=== PATIENT | male | born 1945 | race Caucasian/White ===

== ENCOUNTER 2022-01-31 10:01 | Outpatient (CLI) | payer OTHER, SELFPAY ==
[2022-01-31 14:03] LABS: Chloride* 106 mmol/L (96-114)
[2022-01-31 14:04] LABS: Albumin* 4.3 g/dL (3.3-5.0); Sodium* 141 mmol/L (135-149)
[2022-01-31 14:06] LABS: Bilirubin Total* 1.6 mg/dL (0.1-1.5); Carbon Dioxide* 28 mmol/L (20-32); Cholesterol* 129 mg/dL (90-199); Estimated Glomerular Filt Rate 77 ml/min
[2022-01-31 14:07] LABS: Alanine Aminotransferase* 49 U/L (4-50); Alkaline Phosphatase* 110 U/L (40-150); Aspartate Amino Transferase* 41 U/L (12-35); Blood Urea Nitrogen* 20 mg/dL (7-30); Calcium* 9.4 mg/dL (8.4-10.6); Glucose* 98 mg/dL (60-115); Total Protein* 7.2 g/dL (6.0-8.3); Triglycerides* 64 mg/dL (40-149)
[2022-01-31 14:08] LABS: HDL Cholesterol* 61 mg/dL (>=40); LDL Cholesterol Calculated 55 mg/dL (<100)
[2022-01-31 14:36] LABS: PSA Screen* 0.77 ng/mL (0.10-4.00)
== END 2022-01-31 10:02 | disposition home or self-care (01) ==
PROVIDERS: PCP Family Medicine; Visit Provider Family Medicine
DX: Z00.00 Encounter for general adult medical examination without abnormal findings (principal); E78.5 Hyperlipidemia, unspecified; I10 Essential (primary) hypertension; I25.10 Atherosclerotic heart disease of native coronary artery without angina pectoris; N40.0 Benign prostatic hyperplasia without lower urinary tract symptoms
CPT/HCPCS: 80053; 80061; 84153

== ENCOUNTER 2022-06-03 12:57 | Outpatient (CLI) | payer OTHER, SELFPAY ==
--- OUTSIDE RECORDS SUMMARY | 2022-06-03 13:01 | XMS_ITS | Encounter Summary ---
:1945 Author Organization [place] Address [address] [place] [address] Care Team Providers Name Role Phone Luke Cheema MD Primary Care Provider Reason for Visit Rehab Therapy Cardiac Therapy (Routine) - Closed Specialty Diagnoses / Procedures Referred By Contact Refer red To Contact CARDIAC REHAB Diagnoses Medicare//[place], PEGGY RCA 09/01 Requested recs/order [facility] Procedures EVALUATION [address] [place] [address] [address] [place] [address] Phone: Fax: Referral ID Status Reason Start Date Expiration Date Visits V isits Requested Authorized [facility] Closed 09/07/2015 06/25/2016 36 36 ([id number]) Encounter Details Date Type Department Care Team Description 10/23/2015 Hospital Encounter [facility] Cardiac Epi Montemayor MD [address] [place] [address] and Pulmonary 1, Rh Cardiac Rehab Rehabilitation [place] [facility] [id number] [place] [address] [address] [place] [address] Social History Tobacco Use Types Packs/Day Years Used Date Smoking Tobacco: Never Alcohol Use Standard Drinks/Week Comments No 0 (1 standard drink = 0.6 oz pure alcoho l) Sex Assigned at Date Recorded Not on file documented as of this encounter Medications at Time of Discharge Medication Sig Dispensed Refills Start Date End Date ciprofloxacin (CIPRO) 500 Take 1 tablet (500 6 tablet 0 MG tabletIndications: mg) by mouth 2 times 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) Cyanocobalamin (VITAMIN B Take 1,000 mcg by 0 12 PO) mouth daily HYDROcodone-acetaminophen Take 1-2 tablets by 20 tablet 0 1 06/28/2014 (NORCO) 5-325 MG per mouth every 4 hours tabletIndications: as needed for 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
--- OUTSIDE RECORDS SUMMARY | 2022-06-03 13:01 | XMS_ITS | Clinical Summary ---
:1945 Author Organization [facility] [place] [address] Care Team Providers Name Role Phone Shahid Galindo MD Primary Care Provider Allergies No known active allergies Medications Medication Sig Dispensed Refills Start Date End Date Status aspirin chewable 81 mg Take 1 tablet by 0 08/31/2015 Active chewable mouth once daily tabletIndications: with a meal. Acute NV inferior lateral first episode care (HC) nitroglycerin Place 1 tablet 25 tablet 0 08/31/2015 Active (NITROSTAT) 0.4 mg under the tongue sublingual every 5 minutes tabletIndications: if needed for Acute NV inferior Chest Pain lateral first episode (first choice care (HC) for chest pain). atorvastatin (LIPITOR) Take 1 tablet by 90 tablet 4 11/10/2015 Active 40 mg mouth at tabletIndications: bedtime. Acute NV inferior lateral first episode care (HC) FLOVENT HFA 110 0 10/04/2017 Act oscar mcg/actuation inhaler metoprolol succinate Take 0.5 tablets 0 10/02/2018 Active (TOPROL XL) 50 mg by mouth once sustained-release daily. tabletIndications: Acute NV inferior lateral first episode care (HC) losartan (COZAAR) 50 mg Take 1 tablet by 180 tablet 3 11/01/19 19 Active tabletIndications: CAD mouth 2 times in [place] artery, HTN daily. (hypertension) Active Problems Problem Noted Date ASCVD (arteriosclerotic cardiovascular disease) 2015 S/P PEGGY to RCA 08/28/15 08/28/2015 Ischemic cardiomyopathy, LVEF 35-40% 08/28/15 08/28/2015 Acute NV inferior lateral first episode care 6 Overview: Probable RV involvement HTN (hypertension) 08/27/2015 Urolithiasis 08/27/2015 Social History Tobacco Use Types Packs/Day Years Used Date Never Smoker Smokeless Tobacco: Never Used Tobacco Cessation: Counseling Given: Yes Alcohol Use Standard Drinks/Week Comments No 0 (1 standard drink = 0.6 oz pure alcoho l) Sex Assigned at Date Recorded Not on file Obstetrics History Last Filed Vital Signs Vital Sign Reading Time Taken Comments Blood Pressure 154/84 10/02/2018 11:38 AM CDT Pulse 55 10/02/2018 11:38 AM CDT Temperature 36.8 ??C (98.2 ??F) 10/02/2018 11:38 AM CDT Respiratory Rate 20 10/02/2018 11:38 AM CDT Oxygen Saturation 97% 10/02/2018 11:38 AM CDT Inhaled Oxygen - - Concentration Weight 83.3 kg (183 lb 9.6 10/02/2018 11:38 Pt weighed with shoes oz) AM CDT on. Height 172.7 cm (5' 7.99) 09/09/2015 12:32 PM CDT Body Mass Index 27.92 09/09/2015 12:32 PM CDT Plan of Treatment Health Maintenance Due Date Last Done Comments Tdap 01/14/1955 Depression screening for age 12+ 1956 Hepatitis C screening for age 0701/14/1962 18-79 Tetanus booster 1964 Zoster (shingles) series for age 0701/14/1994 50+ (1 of 2) Medicare Wellness for age 65+ 01/14/2009 Pneumococcal series for age 65+ (1 01/14/2009 - PCV) BMI (ht and wt on same day) for 09/08/2016 09/09/2015 age 18+ Influenza for age 65+ 02/24/2022 COVID-19 vaccine series (5 - 03/03/2022 01/06/2022, 021, Booster for Pfizer series) 08/25/2020, Additiona l history exists Results Not on filefrom Last 3 Months Insurance Payer Benefit Plan / Subscriber ID Effective Dates Phone Addre ss Type Group MEDICARE PART MEDICARE PART A [id number] 2008-Presen ATTN: CLAIMS A - HB USE HB ONLY t [address] [place] [address] MEDICARE PART MEDICARE PART B [id number] 2008-Pres ATTN: CLAIMS B - HB USE HB ONLY t [address] [place] [address] MEDICA MR MEDICA [id number] 2020-Presen MEDICA ADVANTAGE MR t [facility] [address] [address] [place] [address] Advance Directives Latest Code Status on File Code Status Date Activated Date Inactivated Comments Full Code 08/27/2015 7:22 PM 08/31/2015 3:13 PM Care Teams Psychological Operations Officer Relationship Specialty Start Date End Date Shahid Galindo MD PCP - General Family Practice 10/02/18 [address] [address]
--- OUTSIDE RECORDS SUMMARY | 2022-06-03 13:01 | XMS_ITS | Encounter Summary ---
:1945 Author Organization [place] Address [address] [place] [address] Care Team Providers Name Role Phone Luke Cheema MD Primary Care Provider Reason for Visit Rehab Therapy Cardiac Therapy (Routine) - Closed Specialty Diagnoses / Procedures Referred By Contact Refer red To Contact CARDIAC REHAB Diagnoses Medicare//[place], PEGGY RCA 09/01 Requested recs/order [facility] Procedures EVALUATION [address] [place] [address] [address] [place] [address] Phone: Fax: Referral ID Status Reason Start Date Expiration Date Visits V isits Requested Authorized [facility] Closed 09/07/2015 06/25/2016 36 36 ([id number]) Encounter Details Date Type Department Care Team Description 11/06/2015 Hospital Encounter [facility] Cardiac Epi Montemayor MD [address] [place] [address] and Pulmonary 1, Rh Cardiac Rehab Rehabilitation [place] [id number] [place] [address] [address] [place] [address] Social History Tobacco Use [...] on filedocumented in this encounter Care Teams Diet Counselor Relationship Specialty Start Date End Date Luke Cheema MD PCP - General Family Practice 11/25/11 07/26/[address] [phone] documented as of this encounter
--- OUTSIDE RECORDS SUMMARY | 2022-06-03 13:01 | XMS_ITS | Encounter Summary ---
:1945 Author Organization [place] Address [address] [place] [address] Care Team Providers Name Role Phone Luke Cheema MD Primary Care Provider Reason for Visit Rehab Therapy Cardiac Therapy (Routine) - Closed Specialty Diagnoses / Procedures Referred By Contact Refer red To Contact CARDIAC REHAB Diagnoses Medicare//[place], PEGGY RCA 09/01 Requested recs/order [facility] Procedures EVALUATION [address] [place] [address] [address] [place] [address] Phone: Fax: Referral ID Status Reason Start Date Expiration Date Visits V isits Requested Authorized [facility] Closed 09/07/2015 06/25/2016 36 36 ([id number]) Encounter Details Date Type Department Care Team Description 10/28/2015 Hospital Encounter [facility] Cardiac Epi Montemayor MD [address] [place] [address] and Pulmonary 1, Rh Cardiac Rehab Rehabilitation [place] [address] [place] [address] [address] [place] [address] Social History Tobacco Use [...] on filedocumented in this encounter Care Teams Shoe Handler Relationship Specialty Start Date End Date Luke Cheema MD PCP - General Family Practice 11/25/11 07/26/[address] [phone] documented as of this encounter
--- OUTSIDE RECORDS SUMMARY | 2022-06-03 13:01 | XMS_ITS | Encounter Summary ---
:1945 Author Organization [place] Address [address] [place] [address] Care Team Providers Name Role Phone Luke Cheema MD Primary Care Provider Reason for Visit Rehab Therapy Cardiac Therapy (Routine) - Closed Specialty Diagnoses / Procedures Referred By Contact Refer red To Contact CARDIAC REHAB Diagnoses Medicare//[place], PEGGY RCA 09/01 Requested recs/order [facility] Procedures EVALUATION [address] [place] [address] [address] [place] [address] Phone: Fax: Referral ID Status Reason Start Date Expiration Date Visits V isits Requested Authorized [facility] Closed 09/07/2015 06/25/2016 36 36 ([id number]) Encounter Details Date Type Department Care Team Description 10/19/2015 Hospital Encounter [facility] Cardiac Epi Montemayor MD [address] [place] [address] and Pulmonary 1, Rh Cardiac Rehab Rehabilitation [place] [address] [place] [address] [address] [place] [address] Social History Tobacco Use [...] on filedocumented in this encounter Care Teams Wool Scourer Relationship Specialty Start Date End Date Luke Cheema MD PCP - General Family Practice 11/25/11 07/26/[address] [phone] documented as of this encounter
--- OUTSIDE RECORDS SUMMARY | 2022-06-03 13:01 | XMS_ITS | Encounter Summary ---
:1945 Author Organization [place] Address [address] [place] [address] Care Team Providers Name Role Phone Luke Cheema MD Primary Care Provider Reason for Visit Rehab Therapy Cardiac Therapy (Routine) - Closed Specialty Diagnoses / Procedures Referred By Contact Refer red To Contact CARDIAC REHAB Diagnoses Medicare//[place], PEGGY RCA 09/01 Requested recs/order [facility] Procedures EVALUATION [address] [place] [address] [address] [place] [address] Phone: Fax: Referral ID Status Reason Start Date Expiration Date Visits V isits Requested Authorized [facility] Closed 09/07/2015 06/25/2016 36 36 ([id number]) Encounter Details Date Type Department Care Team Description 10/12/2015 Hospital Encounter [facility] Cardiac Epi Montemayor MD [address] [place] [address] and Pulmonary 1, Rh Cardiac Rehab Rehabilitation [place] [facility] [address] [place] [address] [address] [place] [address] Social History Tobacco Use [...] on filedocumented in this encounter Care Teams Hollow Tile Partition Erector Relationship Specialty Start Date End Date Luke Cheema MD PCP - General Family Practice 11/25/11 07/26/[address] [phone] documented as of this encounter
--- OUTSIDE RECORDS SUMMARY | 2022-06-03 13:01 | XMS_ITS | Encounter Summary ---
:1945 Author Organization [place] Address [address] [place] [address] Care Team Providers Name Role Phone Luke Cheema MD Primary Care Provider Reason for Visit Rehab Therapy Cardiac Therapy (Routine) - Closed Specialty Diagnoses / Procedures Referred By Contact Refer red To Contact CARDIAC REHAB Diagnoses Medicare//[place], PEGGY RCA 09/01 Requested recs/order [facility] Procedures EVALUATION [address] [place] [address] [address] [place] [address] Phone: Fax: Referral ID Status Reason Start Date Expiration Date Visits V isits Requested Authorized [facility] Closed 09/07/2015 06/25/2016 36 36 ([id number]) Encounter Details Date Type Department Care Team Description 10/16/[address] [facility] Cardiac Epi Montemayor MD [address] [place] [address] and Pulmonary 1, Rh Cardiac Rehab Rehabilitation [facility] [phone] [place] [address] [address] [place] [address] Social History Tobacco Use [...] on filedocumented in this encounter Care Teams Ward Secretary Relationship Specialty Start Date End Date Luke Cheema MD PCP - General Family Practice 11/25/11 07/26/[address] [phone] documented as of this encounter
--- OUTSIDE RECORDS SUMMARY | 2022-06-03 13:01 | XMS_ITS | Encounter Summary ---
:1945 Author Organization [place] Address [address] [place] [address] Care Team Providers Name Role Phone Shahid Galindo Primary Care Provider Encounter Details Date Type Department Care Team Description 04/07/2021 Travel Social History Tobacco Use Types Packs/Day Years Used Date Smoking Tobacco: Never Alcohol Use Standard Drinks/Week Comments No 0 (1 standard drink = 0.6 oz pure alcoho l) Sex Assigned at Date Recorded Not on file COVID-19 Exposure Response Date Recorded In the last month, have you been in contact with No / Unsure 04/07/2021 5:08 AM CDT someone who was confirmed or suspected to have Coronavirus / COVID-19? documented as of this encounter Plan of Treatment Not on filedocumented as of this encounter Visit Diagnoses Not on filedocumented in this encounter Care Teams Global Implementation Manager Relationship Specialty Start Date End Date Shahid Galindo PCP - General Family Medicine 04/07/21 [facility] [address] [place], [place] [address] documented as of this encounter
--- OUTSIDE RECORDS SUMMARY | 2022-06-03 13:01 | XMS_ITS | Encounter Summary ---
:1945 Author Organization [place] Address [address] [place] [address] Care Team Providers Name Role Phone Shahid Galindo Primary Care Provider Encounter Details Date Type Department Care Team Description 04/07/2021 Documentation Only INTERFACED REPORT Unknown, Provider Social History Tobacco Use Types Packs/Day Years [...] on filedocumented in this encounter Care Teams Director Of Restaurant Operations Relationship Specialty Start Date End Date Shahid Galindo PCP - General Family Medicine 04/07/21 [facility] [address] [place] [address] documented as of this encounter
--- OUTSIDE RECORDS SUMMARY | 2022-06-03 13:01 | XMS_ITS | Encounter Summary ---
:1945 Author Organization [place] Address [address] [place] [address] Care Team Providers Name Role Phone Luke Cheema MD Primary Care Provider Reason for Visit Rehab Therapy Cardiac Therapy (Routine) - Closed Specialty Diagnoses / Procedures Referred By Contact Refer red To Contact CARDIAC REHAB Diagnoses Medicare//[place], PEGGY RCA 09/01 Requested recs/order [facility] Procedures EVALUATION [address] [place] [address] [address] [place] [address] Phone: Fax: Referral ID Status Reason Start Date Expiration Date Visits V isits Requested Authorized [facility] Closed 09/07/2015 06/25/2016 36 36 ([id number]) Encounter Details Date Type Department Care Team Description 10/21/2015 Hospital Encounter [facility] Cardiac Epi Montemayor MD [address] [place] [address] and Pulmonary 1, Rh Cardiac Rehab Rehabilitation [place] [phone] [place] [address] [address] [place] [address] Social History Tobacco Use [...] on filedocumented in this encounter Care Teams Road Builder Relationship Specialty Start Date End Date Luke Cheema MD PCP - General Family Practice 11/25/11 07/26/[address] [phone] documented as of this encounter
--- OUTSIDE RECORDS SUMMARY | 2022-06-03 13:01 | XMS_ITS | Encounter Summary ---
:1945 Author Organization [place] Address [address] [place] [address] Care Team Providers Name Role Phone Luke Cheema MD Primary Care Provider Reason for Visit Rehab Therapy Cardiac Therapy (Routine) - Closed Specialty Diagnoses / Procedures Referred By Contact Refer red To Contact CARDIAC REHAB Diagnoses [place]//[place], PEGGY RCA 09/01 Requested recs/order [facility] Procedures EVALUATION [address] [place] [address] [address] [place] [address] Phone: Fax: Referral ID Status Reason Start Date Expiration Date Visits V isits Requested Authorized [facility] Closed 09/07/2015 06/25/2016 36 36 ([id number]) Encounter Details Date Type Department Care Team Description 11/09/2015 Hospital Encounter [facility] Cardiac Epi Montemayor MD [address] [place] [address] and Pulmonary 1, Rh Cardiac Rehab Rehabilitation [place] [address] [place] [address] [address] [place] [address] Social History Tobacco Use [...] on filedocumented in this encounter Care Teams [employer] Rep Relationship Specialty Start Date End Date Luke Cheema MD PCP - General Family Practice 11/25/11 07/26/[address] [phone] documented as of this encounter
--- OUTSIDE RECORDS SUMMARY | 2022-06-03 13:01 | XMS_ITS | Encounter Summary ---
:1945 Author Organization [place] Address [address] [place] [address] Care Team Providers Name Role Phone Luke Cheema MD Primary Care Provider Reason for Visit Rehab Therapy Cardiac Therapy (Routine) - Closed Specialty Diagnoses / Procedures Referred By Contact Refer red To Contact CARDIAC REHAB Diagnoses [place]//[place], PEGGY RCA 09/01 Requested recs/order [facility] Procedures EVALUATION [address] [place] [address] [address] [place] [address] Phone: Fax: Referral ID Status Reason Start Date Expiration Date Visits V isits Requested Authorized [facility] Closed 09/07/2015 06/25/2016 36 36 ([id number]) Encounter Details Date Type Department Care Team Description 11/02/2015 Hospital Encounter [facility] Cardiac Epi Montemayor MD [address] [place] [address] and Pulmonary 1, Rh Cardiac Rehab Rehabilitation [place] [address] [place] [address] [address] [place] [address] Social History Tobacco Use [...] on filedocumented in this encounter Care Teams Clinical Administrative Coordinator Relationship Specialty Start Date End Date Luke Cheema MD PCP - General Family Practice 11/25/11 07/26/[address] [phone] documented as of this encounter
--- OUTSIDE RECORDS SUMMARY | 2022-06-03 13:01 | XMS_ITS | Clinical Summary ---
:1945 Author Organization [place] Address [address] [place] [address] Care Team Providers Name Role Phone Shahid Galindo Primary Care Provider Allergies No known active allergies Medications Medication Sig Dispensed Refills Start Date End Date Status LISINOPRIL PO Take 10 mg by 0 Ac tive mouth daily Cyanocobalamin (VITAMIN Take 1,000 mcg by 0 Active B 12 PO) mouth daily Pyridoxine HCl (VITAMIN Take 25 mg by 0 Active B6 PO) mouth daily NONFORMULARY Take 400 mg by 0 Ac tive mouth daily VITAMIN B-11 HYDROcodone-acetaminoph Take 1-2 tablets 20 tablet 0 5 Active en (NORCO) 5-325 MG per by mouth every 4 tabletIndications: hours as needed 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 severe pain (H) (Moderate to Severe Pain) ciprofloxacin (CIPRO) Take 1 tablet 6 tablet 0 04/28/2015 Active 500 MG (500 mg) by mouth tabletIndications: 2 times daily 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) Social History Tobacco Use Types Packs/Day Years Used Date Smoking Tobacco: Never Alcohol Use Standard Drinks/Week Comments No 0 (1 standard drink = 0.6 oz pure alcoho l) Sex Assigned at Date Recorded Not on file Last Filed Vital Signs Vital Sign Reading Time Taken Comments Blood Pressure 147/87 04/07/2021 7:50 AM CDT Pulse 70 04/07/2021 7:50 AM CDT Temperature 36.4 ??C (97.6 ??F) 04/07/2021 5:16 AM CDT Respiratory Rate 18 04/07/2021 5:16 AM CDT Oxygen Saturation 98% 04/07/2021 7:50 AM CDT Inhaled Oxygen Concentration - - Weight 77.1 kg (170 lb) 04/07/2021 5:16 AM CDT Height 170.2 cm (5' 7) 04/07/2021 5:16 AM CDT Body Mass Index 26.63 04/07/2021 5:16 AM CDT Plan of Treatment Health Maintenance Due Date Last Done Comments ADVANCE CARE PLANNING 1945 ANNUAL REVIEW OF HM ORDERS 1945 COVID-19 Vaccine (#1) 1945 HEPATITIS C SCREENING 01/14/1962 DTAP/TDAP/TD IMMUNIZATION (1 01/14/1969 - Tdap) LIPID 01/14/1979 ZOSTER IMMUNIZATION (1 of 2) 01/14/1994 FALL RISK ASSESSMENT 01/14/2009 MEDICARE ANNUAL WELLNESS 01/14/2009 VISIT Pneumococcal Vaccine: 65+ 01/14/2009 Years (1 - PCV) PHQ-2 (once per calendar 06/26/2021 year) INFLUENZA VACCINE (#1) 2022 COLONOSCOPY Discontinued 12/05/2011, 11/07/2005 COLORECTAL CANCER SCREENING Discontinued CT COLONOGRAPHY Discontinued FIT-DNA (Cologuard) Discontinued FIT Discontinued FLEX SIG Discontinued IPV IMMUNIZATION Aged Out No longer eligi ble based on patient's age to complete this to [facility] MENINGITIS IMMUNIZATION Aged Out No longe r eligible based on patient's age to complete this to [facility] Insurance Payer Benefit Plan / Subscriber ID Effective Dates Phone Addre ss Type Group MEDICA MEDICA ADVANTAGE [id number] 2020-Present [phone] [address] [address] [email or web address] [address] Care Teams Ed Tech Relationship Specialty Start Date End Date Shahid Galindo PCP - General Family Medicine 04/07/21 [facility] [address] [place] [address]
--- OUTSIDE RECORDS SUMMARY | 2022-06-03 13:01 | XMS_ITS | Encounter Summary ---
:1945 Author Organization [facility] Address [address] [place] [address] Care Team Providers Name Role Phone Shahid Galindo Primary Care Provider Reason for Visit Reason Comments Constipation Encounter Details Date Type Department Care Team Description 04/07/2021 Emergency [facility] Romy Oconnor MD Slow transit [facility] Emergency Dep t [facility] constipation [address] [place], [place] [address] [facility] [phone] [facility] [phone] [place] [address] (Wo rk) Social History Tobacco Use Types Packs/Day Years [...] / COVID-19? documented as of this encounter Last Filed Vital Signs Vital Sign Reading [...] Mass Index 26.63 04/07/2021 5:16 AM CDT documented in this encounter Discharge Instructions AttachmentsThe following attachments cannot be sent through Care Everywhere. Constipation, Treating (Cymro)Constipation (Adult) (Cymro)Diet, Eating a High-Fiber (Cymro)documented in this encounter Medications at Time of Discharge [...] PO) daily documented as of this encounter ED Notes Charlotte Newton RN - 04/07/2021 7:53 AM CDT Patient alert and oriented. Respirations even and unlabored. All discharge education given. All questions answered. All medications explained in detail. Patient denies further needs and states that they are ready to leave. Patient ambulated out of the ER with steady gait. Miguel Bright RN - 04/07/2021 5:14 AM CDT Here for concern of constipation for about 24 hours associated with rectal pain. Unable to have a bowel movement since 3pm yesterday. Tried dulcolax but not helping. Last normal bowel movement about 30hours ago. Is currently taking guaifenesin-codeine since night for coughing. ABCs intact. Davide Oconnor MD - 04/07/2021 5:10 AM CDT History Chief Complaint: Constipation The history is provided by the patient. Jaxon Lawler is a 76 year old male with history of kidney stones, melanoma, hypertension, ASCVD,and ischemic cardiomyopathy who presents with constipation. The patient had his last bowel movement about 30 hours ago and has since been constipated and reports yesterday at 1500 he began feeling uncomfortable. Last night he did not eat supper due a lack of appetite and was also unable to sleep from the constipation. The patient has drank prune juice and taken 2 laxative tablets which have worked inthe past, but have not this time. The patient does take fiber medication every morning, and has typically regular bowel movements. Upon arrival he denies any fever or vomiting. The patient did have a routine colonoscopy on 03/29/2021 with normal results. He has also been on codeine due to a bad cough, but stopped taking this yesterday at noon due to the constipation. The patient has additionally not taken his heart medication since yesterday due to the discomfort. He reports no past surgery of the abdomen. Review of Systems Constitutional: Positive for appetite change. Negative for fever. Gastrointestinal: Positive for constipation. Negative for vomiting. Psychiatric/Behavioral: Positive for sleep disturbance. All other systems reviewed and are negative. Allergies: No Known Allergies Medications: ciprofloxacin Cyanocobalamin hydrocodone-acetaminophen lisinopril Pyridoxine Past Medical History: kidney stones Melanoma hypertension ASCVD (arteriosclerotic cardiovascular disease) Ischemic cardiomyopathy Urolithiasis Past Surgical History: Colonoscopy Cystoscopy, retrogrades, combined Cystoscopy, transurethral resection tumor bladder instill chemotherapy, combined Genitourinary surgery Soft tissue surgery Social History: Presents with spouse. PCP: No primary care provider on file. Physical Exam Patient Vitals for the past 24 hrs: BP Temp Temp src Pulse Resp SpO2 Height Weight 04/07/21 0516 (!) 153/96 97.6 ??F (36.4 ??C) Oral 65 18 99 % 1.702 m (5' 7) 77.1 kg (170 lb) Physical Exam General: Patient is alert and cooperative. HENT: Normal nose, oropharynx. Moist oral mucosa. Eyes: EOMI. Normal conjunctiva. Neck: Normal range of motion and appearance. Cardiovascular: Normal rate. Pulmonary/Chest: Effort normal. Abdominal: Soft. No distension or tenderness. Musculoskeletal: Normal range of motion. No edema or tenderness. Neurological: oriented, normal strength, sensation, and coordination. Skin: Warm and dry. No rash or bruising. Psychiatric: Normal mood and affect. Normal behavior and judgement. Emergency Department Course Emergency Department Course: Reviewed: I reviewed nursing notes, vitals, past medical history and Care Everywhere Assessments: 0718 I obtained history and examined the patient as noted above. Disposition: The patient was discharged to home. Impression & Plan Medical Decision Making: Afebrile 76 year old male with acute constipation x 1-2 days. No fever or vomiting. No hx constipation. Tried hydration, prune juice without results. Recent neg repeat screening colonoscopy. No hx abdominal surgeries. Benign exam. Clinically c/w uncomplicated constipation. Discussed management options, including ED enema vs. Aggressive otc miralax in colon prep dosing fashion. He opts for latter, will return if no results, fever, other concerns. Diagnosis: ICD-10-CM 1. Slow transit constipation K59.01 Discharge Medications: New Prescriptions No medications on file Scribe Disclosure: I, Sonja Ward, am serving as a scribe at 7:14 AM on 04/07/2021 to document services personally performed by Davide Oconnor MD based on my observations and the provider's statements to me. Davide Oconnor MD 04/07/212108 documented in this encounter Plan of Treatment Not on filedocumented as of this encounter Visit Diagnoses Diagnosis Slow transit constipation documented in this encounter Care Teams [employer] Relationship Specialty Start Date End Date Shahid Galindo PCP - General Family Medicine 04/07/21 [facility] [address] [place] [address] documented as of this encounter
--- OUTSIDE RECORDS SUMMARY | 2022-06-03 13:01 | XMS_ITS | Encounter Summary ---
:1945 Author Organization [facility] Address [address] [place] [address] Care Team Providers Name Role Phone Luke Cheema MD Primary Care Provider Reason for Visit Rehab Therapy Cardiac Therapy (Routine) - Closed Specialty Diagnoses / Procedures Referred By Contact Refer red To Contact CARDIAC REHAB Diagnoses [place]//[place] PEGGY RCA 09/01 Requested recs/order [facility] Procedures EVALUATION [address] [place] [address] [address] [place] [address] Phone: Fax: Referral ID Status Reason Start Date Expiration Date Visits V isits Requested Authorized [facility] Closed 09/07/2015 06/25/2016 36 36 ([id number]) Encounter Details Date Type Department Care Team Description 10/09/[address] [facility] Cardiac Epi Montemayor MD [address] [place] [address] and Pulmonary 1, Rh Cardiac Rehab Rehabilitation [facility] [id number] [place] [address] [address] [place] [address] Social History Tobacco Use Types Packs/Day Years Used Date Smoking Tobacco: Never Alcohol Use Standard Drinks/Week Comments No 0 (1 standard drink = 0.6 oz pure alcoho l) Sex Assigned at Date Recorded Not on file documented as of this encounter Last Filed Vital Signs Vital Sign Reading Time Taken Comments Blood Pressure - - Pulse - - Temperature - - Respiratory Rate - - Oxygen Saturation - - Inhaled Oxygen Concentration - - Weight 75.5 kg (166 lb 6.4 oz) 10/09/2015 2:00 PM CDT Height 172.7 cm (5' 7.99) 10/09/2015 2:00 PM CDT Body Mass Index 25.31 10/09/2015 2:00 PM CDT documented in this encounter Medications at Time of [...] PO) daily documented as of this encounter Miscellaneous Notes Addendum Note - Nai Rausch OT - 10/12/2015 8:08 AM CDTEncounter addended by: Nai Rausch OT on: 10/12/2015 8:08 AM
Documentation filed: Charges VN, Episodes documented in this encounter Plan of Treatment Not on filedocumented as of this encounter Visit Diagnoses Not on filedocumented in this encounter Care Teams Nursing Home Physician Relationship Specialty Start Date End Date Luke Cheema MD PCP - General Family Practice 11/25/11 07/26/[address] [phone] documented as of this encounter
--- OUTSIDE RECORDS SUMMARY | 2022-06-03 13:01 | XMS_ITS | Encounter Summary ---
:1945 Author Organization [facility] Address [address] [place] [address] Care Team Providers Name Role Phone Luke Cheema MD Primary Care Provider Reason for Visit Rehab Therapy Cardiac Therapy (Routine) - Closed Specialty Diagnoses / Procedures Referred By Contact Refer red To Contact CARDIAC REHAB Diagnoses Medicare//[place], PEGGY RCA 09/01 Requested recs/order [facility] Procedures EVALUATION [address] [place] [address] [address] [place] [address] Phone: Fax: Referral ID Status Reason Start Date Expiration Date Visits V isits Requested Authorized [facility] Closed 09/07/2015 06/25/2016 36 36 ([id number]) Encounter Details Date Type Department Care Team Description 11/10/2015 Hospital Encounter [facility] Cardiac Epi Montemayor MD [address] [place] [address] and Pulmonary 1, Rh Cardiac Rehab Rehabilitation [facility] [id number] [place] [address] [address] [place] [address] Social History Tobacco Use [...] - Inhaled Oxygen Concentration - - Weight 75 kg (165 lb 6.4 oz) 11/10/2015 2:00 PM CDT Height 172.7 cm (5' 7.99) 11/10/2015 2:00 PM CDT Body Mass Index 25.15 11/10/2015 2:00 PM CDT documented in this encounter [...] PO) daily documented as of this encounter Progress Notes Samir Zelaya MD - 11/10/2015 3:06 PM CDT OUTPATIENT CARDIAC REHAB DISCHARGE SUMMARY Name: Jaxon Lawler Date of : 1945 Date of Treatment: 08/27/15 Age: [age] year old Gender: male Treatment Diagnosis: Myocardial Infarction Secondary Treatment Diagnosis: Stent Hospital Location: [facility] Discharge Date: 08/31/15 Outpatient CR Start Date: 09/08/15 Primary Physician: Dr. Tracey Brennan Surgeon: Engraver Jewelry: Dr. Epi Fontaine Ejection Fraction: 55-60% THR (85% of age predicted max HR): 126.65 Risk Stratification: Low Assessment Assessment: 09/22/15. PT is progressing per POC. Hematoma is healing nicely. Appetite is WNL. Sleep is disrupted. He reports awaking frequently during the night to use bathroom. He aslo reports having night sweats. PT will see PCP mid September and have an echo late September. PT will be absent from rehab for about 1 week as he will be out of town. Continue with skilled therapy for increased exercise capacity, education and behavior change counseling. 10/09/15 PT present for 1:1 consult today. Discussed PT's progression and current workload. PT reports that he is more aware of the foods in his diet. See nutrition section. PT reports that he is still having trouble getting up multiple times throughout the night and using the restroom. Suggested he try to drink less water closer to bedtime. PT is not having night sweats anymore. He has started to exercise at home on his TM for 10-15 minutes 2 days/week. Discussed progress in both goals. See goals 1 and 2. PT is interested in learning more ways to incorporated aerobic exercise into his daily activities. He had a resting echo yesterday and is waiting for the results. Pt wondered if what he could expect. PT was under the impression that his EF could not increase. Therapist explained that it could if the muscle in the heart was able to heal some of the damaged area. PT will report his results to therapist when he receives them. PT continues to benefit fromOPCR for increased exercise capacity, education and behavior change counseling. Pt made significant gains in exercise tolerance. Initially patient tolerated 30 minutes at 2.6 METs, now tolerating 40 minutes at 6.0 METs. Patient also increased 6- minute walk test by 43%. The PT was given instructions onfrequency, intensity, and duration for continued exercise as well as muscle conditioning and stretchi ng exercises. Your PT plans to continue with an aerobic exercise program with use of TM and/or elliptical at work, is considering purchasing a TM or possibly joining a gym. He is pleased with his progress and has felt that the cardiac rehab program has been beneficial in aiding him to start an exercise program as well as provide education on risk factor management. All questions answered and PT discharged at this time. 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 Target Date 10/21/15 Date Met 11/10/15 Progress Towards Goal 09/19/15. This week Pt returned to work. He is limiting himself to 2-4 hours per day. PT has also self limited his lifting and ladder climbing. His employer is very accommodating.Py plans to gradually increase to 5 days and 5 hours per day. 10/09/15 PT is working 2.5-3 hours/day no more than 3 days/week. Next week PT plans to increase to 5 days/week. Goal PT desires to get his heart strong enough to be able to work at an intensity high enough to maintain his [address] through attending cardiac rehab 3 days/week building a safe, aerobic exercise program. Target Date 10/21/15 Date Met 11/10/15 Progress Towards Goal 09/22/15. Pt has resumed most ADLs without issue. 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 Therapy will continue to provide instruction for gradual progress and safe return to this. 10/09/15 PT is being very cautious to not over do his work at home. He reports that he did mow the lawn on the riding mower last weekend. PT feels he will be able to base his workload on the progression of his weights to help him gauge the lifting he can handle. PT is making good progress in his work at rehab. Goal Target Date Date Met Progress Towards Goal Goal Target Date Date Met Progress Towards Goal Referrals Recommended Referrals recommended: Comments: Pain Assessment Patient Currently in Pain: No Pain Location: Pain Rating: Pain Description: Pain Description Comment: Additional Pain Locations?: Pain Location 2: Pain Rating 2: Pain Location 3: Pain Rating 3: Pain Comments: RISK FACTORS Hypertension Hypertension: Yes Currently taking antihypertensives? Yes Target outcome goal: BP< 140/90 or <130/80 if DM or CKD Outcome Achieved Hypertension comments: 09/08/15 PTs BP is WNL.10/09/15 No change. Tobacco Tobacco: Never Quit date or planned quit date: Tobacco habit: Tobacco use per day: Interventions planned: Interventions completed: Stages of change: Target outcome goal: Complete Smoking Cessation: Outcome Achieved (NA) Tobacco comments: Stress / Psychosocial Discharge Psychosocial assessment: Re-assessment Patient admits to stress: Denies Current level of stress: Denies Coping skills: NA Patient Health Questionnaire-9 (PHQ-9) for Depression: 5-9 Minimal symptoms 10-14 Minor depression 15-19 Major depression, moderately severe > 20 Major depression, severe Completed PHQ-9 Score: 3 [facility] Function and Health Status Survey: A score of 4-5 indicates deficit for each functional health domain Completed Physical Fitness: 2 Feelings: 1 Daily Activities: 1 Social Activities: 1 Pain: 2 Change in Health: 1 Overall Health: 2 Social Support: 1 Quality of Life: 1 Stages of change: Maintenance Psychosocial interventions planned: Patient to verbalize understanding of negative impact of stress to personal health Psychsocial interventions completed: Target outcome goal: Assessment for depression using PhQ-9 and [facility] CO[facility] questionnaires. Maximize coping skills and develop positive support system: Outcome Achieved Comments: 09/08/15 PT reports that stress is not an issue for him at this time. PT reports that his is easy going and doesn't let things bother him. 09/22/15. Did not address. 10/09/15 PT denies stress asan issue for him at this time. Nutrition Discharge Dietary assessment: Re-assessment Rate Your Plate - Heart Survey: Scores range from 24 to 72. The higher the score the healthier the eating choices. 60 Overweight / Obesity: Yes Age: 70 Weight: 75.025 kg (165 lb 6.4 oz) Height: 172.7 cm (5' 7.99) BMI (Calculated): 25.21 Goal weight: Prescribed diet: Low Fat, Low Sodium, Low Cholesterol Follows prescribed diet: > 80% Stages of change to prescribed diet: Action Nutrition interventions planned: Attend Diet Classes, Instruct on Label Reading Nutrition interventions completed: Attended diet class (es) Target outcome goal: BMI < 25: Outcome Achieved Comments: 09/08/15 PT reports that they eat a diet following weight watchers guidelines. He avoids nuts, popcorn and seeds due to diverticulitis. PT was prescribed a heart healthy diet and they are working on making these changes. 09/22/15. Pt has decreased his portions at meals. He is having small snacks throughout the day that are typically fruit and/or yogurt. 10/09/15 PT has attended one of the nutrition classes. He reports that he is much more aware of the foods he is eating. He pays attention to the labels now watching for trans and saturated fats as well as sodium. Pt has cut out a lot of salt from his diet. He is eating more fruits and vegetables now and less red meat. Cholesterol Cholesterol: Labs Not Available (PT looking to gain access to CHOL values.) Date: Total Cholesterol: HDL: LDL: Triglycerides: Target outcome goal: Total cholesterol <150, HDL >40 M >50 F, LDL < 70, Trig < 150: Comments: Diabetes Management Diabetes Management: NA Hb A1C: Pre-Exercise Blood Sugar: Target outcome goal: Hb A1C < 7: Outcome Achieved (NA) Comments: Inactivity / Aerobic Exercise Discharge Status Activity assessment: Re-assessment Inactivity: Meets Physical Activity Goal Physical Activity Days per Week: 7 Aerobic Exercise Days per Week: 5 Aerobic Exercise Minutes per Day: 30-40 (10-15 minutes at home) Stages of Change (Physical Activity): Maintenance Stages of Change (Aerobic Activity): Action Target Outcome Goal: Aerobic Activity 30 minutes, 5 days per week = 150 minutes per week: Outcome Achieved Comments: 09/08/15 PT has access to a TM and elliptical/bike at home. 10/09/15 PT reports using his TMat home 2 days/week for 10-15 minutes. He is interested in finding more aerobic exercises he can incorporate into his daily activities. He is also thinking about joining [employer]. PT told about the WEL program. INDIVIDUALIZED TREATMENT PLAN Monitored sessions scheduled: 18 Monitored sessions attended: 24 Exercise Reassessment Discharge 6 Minute Walk Distance: 2069 ft 6 Minute Walk Predicted (Male): 1671.48 6 Minute Walk Predicted (Female): 1472.23 Met Level Achieved: 6.0 Resting HR: 54 bpm Exercise HR: 121 bpm Post Exercise HR: 76 bpm Resting BP: 110/64 mmHg Exercise BP: 134/64 mmHg Post Exercise BP: 118/66 mmHg Pre SpO2: While Exercising SpO2: Post SpO2: Pre BG (if applicable): Post BG (if applicable): RPE: 5 ECG Rhythm: Sinus bradycardia, Sinus rhythm Ectopy: PVC's Symptoms at home: Denies symptoms Symptoms in rehab: Denies symptoms Limitations: PT had huge hematoma following PCI. still is tender. 3*2916. Reports hematoma is much better. Very little to no discomfort. No exercise modality limits. Exercise Prescription Type: Aerobic exercise, Resistance training, Flexibility training Mode: Treadmill, Airdyne, NuStep, Recumbent bike, Elliptical, Weights Frequency: 3 days week Duration/Time: 15-30 min Age: 70 THR (85% of age predicted max HR): 126.65 RPE recommended: Other (see comments) (OMNI 4-6) Progression: Progress PTs duration first once PT is able to complete 30 minutes of continuous aerobic exercise. Then increase intensity 1/4-1/2 MET per PT rating on OMNI scale 4-6 and CV response. Progress on TM (no bikes) until groin hematoma heals completely. 09/22/15. Ok to begin using other exercise modalities. Angina with exercise: No Resistance Training: Yes Comments: 10/09/15 PT Will increase weights next week to 8# and continue to progress his wts as he adjust. Current Home Exercise Type of Exercise: Treadmill Frequency (days per week): 2 Duration (minutes per session): 10-15 Recommended Home Exercise Prescription Type of Exercise: Walking, Treadmill Frequency (days per week): 5 to 6 Duration (minutes per session): 30-45 min RPE recommended: Other (see comments) (OMNI 4-6) Recommended THR: Less than 126.65 BPM Comments/Exercise plan: Patient Education Education Attended: Exercise Principles, Nutrition, Anatomy and Physiology of the Heart, Medication Overview, Stress Management Physician cosignature/electronic signature indicates agreement with the ITP document and approval ofdischarge. documented in this encounter Plan of Treatment Not on filedocumented as of this encounter Visit Diagnoses Not on filedocumented in this encounter Care Teams Art Class Model Relationship Specialty Start Date End Date Luke Cheema MD PCP - General Family Practice 11/25/11 07/26/[address] [address] documented as of this encounter
--- OUTSIDE RECORDS SUMMARY | 2022-06-03 13:01 | XMS_ITS | Encounter Summary ---
:1945 Author Organization [place] Address [address] [place] [address] Care Team Providers Name Role Phone Luke Cheema MD Primary Care Provider Reason for Visit Rehab Therapy Cardiac Therapy (Routine) - Closed Specialty Diagnoses / Procedures Referred By Contact Refer red To Contact CARDIAC REHAB Diagnoses Medicare//HI, PEGGY RCA 09/01 Requested recs/order [facility] Procedures EVALUATION [address] [place] [address] [address] [place] [address] Phone: Fax: Referral ID Status Reason Start Date Expiration Date Visits V isits Requested Authorized [facility] Closed 09/07/2015 06/25/2016 36 36 ([id number]) Encounter Details Date Type Department Care Team Description 10/14/2015 Hospital Encounter [facility] Cardiac Epi Montemayor MD [address] [place] [address] and Pulmonary 1, Rh Cardiac Rehab Rehabilitation [place] [facility] [id number] [place] [address] [address] [place] [address] Social History Tobacco Use [...] encounter Progress Notes Samir Zelaya MD - 10/14/2015 2:45 PM CDT OUTPATIENT CARDIAC REHAB INDIVIDUALIZED TREATMENT PLAN Progress Update Certified through this date: 11/25/15 Name: Jaxon Lawler Date of : 1945 Date of Treatment: 08/27/15 Age: [age] year old Gender: male Treatment Diagnosis: Myocardial Infarction Secondary Treatment Diagnosis: Stent Hospital Location: [facility] Discharge Date: 08/31/15 Outpatient CR Start Date: 09/08/15 Primary Physician: Dr. Tracey Brennan Surgeon: [place] Hand: Dr. Epi Fontaine Ejection Fraction: 35-40% THR (85% of age predicted max HR): 126.65 Risk Stratification: High Assessment Assessment: 09/22/15. PT is progressing per POC. Hematoma is healing nicely. Appetite is WNL. Sleep is disrupted. He reports awaking frequently during the night to use bathroom. He also reports having night sweats. PT will see [...] exercise capacity, education and behavior change counseling. 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 Target Date 10/21/15 Date Met Progress Towards Goal 09/19/15. This week Pt [...] exercise program. Target Date 10/21/15 Date Met Progress Towards Goal 09/22/15. Pt has resumed [...] Achieved (NA) Tobacco comments: Stress / Psychosocial Reassessment Psycho-social Assessment: Re-assessment Patient admits to stress: Denies Current level of stress: Denies Coping skills: NA Patient Health Questionnaire-9 (PHQ-9) for Depression: 5-9 Minimal symptoms 10-14 Minor depression 15-19 Major depression, moderately severe > 20 Major depression, severe Completed PHQ-9 Score: 7 [facility] Function and Health Status Survey: A score of 4-5 indicates deficit for each functional health domain Completed Physical Fitness: 3 Feelings: 1 Daily Activities: 3 Social Activities: 1 Pain: 2 Change in Health: 4 Overall Health: 2 Social Support: 1 Quality of Life: 3 Stages of change: Maintenance Psychosocial Interventions planned: Patient to verbalize understanding of negative impact of stress to personal health Psychosocial Interventions completed: Target outcome goal: Assessment for depression using PhQ-9 and [facility] questionnaires. Maximize coping skills and develop positive support system. Outcome Achieved Comments: 09/08/15 PT reports that stress is not an issue for him at this time. PT reports that his is easy going and doesn't let things bother him. 09/22/15. Did not address. 10/09/15 PT denies stress asan issue for him at this time. Nutrition Reassessment Dietary assessment: Re-assessment Rate Your Plate - Heart Survey: Scores range from 24 to 72. The higher the score the healthier the eating choices. 50 Overweight / Obesity: Yes Age: 70 Weight: Height: BMI (Calculated): Goal weight: Prescribed diet: Low Fat, Low Sodium, Low Cholesterol Follows prescribed diet: 60 - 79% Stages of change to prescribed diet: Action Nutrition interventions planned: Attend Diet Classes, Instruct on Label Reading Nutrition interventions completed: Target outcome goal: BMI < 25: Outcome [...] Achieved (NA) Comments: Inactivity / Aerobic Exercise Reassessment Activity Assessment: Re-assessment Inactivity: Meets Physical Activity Goal Physical Activity Days per Week: 7 Aerobic Exercise Days per Week: 5 Aerobic Exercise Minutes per Day: 30-40 (10-15 minutes at home) Stages of Change (Physical Activity): Maintenance Stages of Change (Aerobic Activity): Action Target Outcome Goal: Aerobic Activity 30 minutes, 5 days per week = 150 minutes per week: Outcome Not Achieved Comments: 09/08/15 PT has access to a TM and elliptical/bike at home. 10/09/15 PT reports using his TMat home 2 days/week for 10-15 minutes. He is interested in finding more aerobic exercises he can incorporate into his daily activities. INDIVIDUALIZED TREATMENT PLAN Monitored sessions scheduled: 18 Monitored sessions Attended: 11 Exercise Reassessment Met Level Achieved: 4.6 Resting HR: 54 bpm Exercise HR: 104 bpm Post Exercise HR: 51 bpm Resting BP: 98/68 mmHg Exercise BP: 138/80 mmHg Post Exercise BP: 112/58 mmHg Pre SpO2: While Exercising SpO2: Post SpO2: Pre BG (if applicable): Post BG (if applicable): RPE: 5 ECG Rhythm: Sinus bradycardia, Sinus rhythm Ectopy: PVCs Symptoms at home: Denies symptoms Symptoms in rehab: Denies symptoms Limitations: PT had huge hematoma following PCI. still is tender. 3*2916. Reports hematoma is much better. Very little to no discomfort. No exercise modality limits. Exercise Prescription Type: Aerobic exercise, Resistance training, Flexibility training Mode: Treadmill, Airdyne, Nustep, Recumbent bike, Elliptical, Weights Frequency: 3 days [...] Exercise: Walking, Treadmill Frequency (days per week): 2-3 Duration (minutes per session): 15-30 min RPE recommended: Other (see comments) (OMNI 4-6) Recommended THR: Less than 126.65 BPM Comments/Exercise plan: Patient Education Education Recommended: Anatomy and Physiology of the Heart, Medication Overview, Nutrition, Blood Pressure, Risk Factors, Exercise Principles Education Attended: Exercise Principles, Nutrition Physician cosignature/electronic signature indicates approval of this ITP document. I have established, reviewed and made necessary changes to the individualized treatment plan and exercise prescription for this patient. documented in this encounter Plan of Treatment Not on filedocumented as of this encounter Visit Diagnoses Not on filedocumented in this encounter Care Teams Investment Consultant Relationship Specialty Start Date End Date Luke Cheema MD PCP - General Family Practice 11/25/11 07/26/[address] [phone] documented as of this encounter
--- OUTSIDE RECORDS SUMMARY | 2022-06-03 13:01 | XMS_ITS | Encounter Summary ---
:1945 Author Organization [place] Address [address] [place] [address] Care Team Providers Name Role Phone Luke Cheema MD Primary Care Provider Reason for Visit Rehab Therapy Cardiac Therapy (Routine) - Closed Specialty Diagnoses / Procedures Referred By Contact Refer red To Contact CARDIAC REHAB Diagnoses Medicare//HI, PEGGY RCA 09/01 Requested recs/order [facility] Procedures EVALUATION [address] [place] [address] [address] [place] [address] Phone: Fax: Referral ID Status Reason Start Date Expiration Date Visits V isits Requested Authorized [facility] -[facility] Closed 09/07/2015 06/25/2016 36 36 ([id number]) Encounter Details Date Type Department Care Team Description 11/04/[address] [facility] Cardiac Epi Montemayor MD [address] [place] [address] and Pulmonary 1, Rh Cardiac Rehab Rehabilitation [place] [facility] [phone] [place] [address] [address] [place] [address] Social History Tobacco Use [...] on filedocumented in this encounter Care Teams Continuous Pillowcase Cutter Relationship Specialty Start Date End Date Luke Cheema MD PCP - General Family Practice 11/25/11 07/26/[address] [phone] documented as of this encounter
--- OUTSIDE RECORDS SUMMARY | 2022-06-03 13:01 | XMS_ITS | Encounter Summary ---
:1945 Author Organization [place] Address [address] [place] [address] Care Team Providers Name Role Phone Luke Cheema MD Primary Care Provider Reason for Visit Rehab Therapy Cardiac Therapy (Routine) - Closed Specialty Diagnoses / Procedures Referred By Contact Refer red To Contact CARDIAC REHAB Diagnoses Medicare//[place], PEGGY RCA 09/01 Requested recs/order [facility] Procedures EVALUATION [address] [place] [address] [place] [address] Phone: Fax: Referral ID Status Reason Start Date Expiration Date Visits V isits Requested Authorized [facility] -[facility] Closed 09/07/2015 06/25/2016 36 36 ([id number]) Encounter Details Date Type Department Care Team Description 10/26/2015 Hospital Encounter [facility] Cardiac Epi Montemayor MD [address] [place] [address] and Pulmonary 1, Rh Cardiac Rehab [facility] [place] [facility] [phone] [place] [address] [address] [place] [address] Social History Tobacco Use [...] on filedocumented in this encounter Care Teams Liquor Grinder Mill Operator Relationship Specialty Start Date End Date Luke Cheema MD PCP - General Family Practice 11/25/11 07/26/[address] [phone] documented as of this encounter
--- OUTSIDE RECORDS SUMMARY | 2022-06-03 13:02 | XMS_ITS | Encounter Summary ---
:1945 Author Organization [place] Address [address] [place] [address] Care Team Providers Name Role Phone Luke Cheema MD Primary Care Provider Reason for Visit Rehab Therapy Cardiac Therapy (Routine) - Closed Specialty Diagnoses / Procedures Referred By Contact Refer red To Contact CARDIAC REHAB Diagnoses Medicare//[place], PEGGY RCA 09/01 Requested recs/order [facility] Procedures EVALUATION [address] [place] [address] [place] [address] Phone: Fax: Referral ID Status Reason Start Date Expiration Date Visits V isits Requested Authorized [facility] -[facility] Closed 09/07/2015 06/25/2016 36 36 ([id number]) Encounter Details Date Type Department Care Team Description 09/14/2015 Hospital Encounter [facility] Cardiac Epi Montemayor MD [address] [place] [address] and Pulmonary 1, Rh Cardiac Rehab Rehabilitation [place] [facility] [id number] [place] [address] [address] [place] [address] Social History Tobacco Use [...] on filedocumented in this encounter Care Teams Retention Specialist Relationship Specialty Start Date End Date Luke Cheema MD PCP - General Family Practice 11/25/11 07/26/[address] [phone] documented as of this encounter
--- OUTSIDE RECORDS SUMMARY | 2022-06-03 13:02 | XMS_ITS | Encounter Summary ---
:1945 Author Organization [place] Address [address] [place] [address] Care Team Providers Name Role Phone Luke Cheema MD Primary Care Provider Reason for Visit Rehab Therapy Cardiac Therapy (Routine) - Closed Specialty Diagnoses / Procedures Referred By Contact Refer red To Contact CARDIAC REHAB Diagnoses Medicare//[place], PEGGY RCA 09/01 Requested recs/order [facility] Procedures EVALUATION [address] [place] [address] [address] [place] [address] Phone: Fax: Referral ID Status Reason Start Date Expiration Date Visits V isits Requested Authorized [facility] -[facility] Closed 09/07/2015 06/25/2016 36 36 ([id number]) Encounter Details Date Type Department Care Team Description 09/16/2015 Hospital Encounter [facility] Cardiac Epi Montemayor MD [address] [place] [address] and Pulmonary 1, Rh Cardiac Rehab Rehabilitation [place] [facility] [address] [place] [address] [address] [place] [address] Social History Tobacco Use [...] on filedocumented in this encounter Care Teams Cloth Shearer Relationship Specialty Start Date End Date Luke Cheema MD PCP - General Family Practice 11/25/11 07/26/[address] [phone] documented as of this encounter
--- OUTSIDE RECORDS SUMMARY | 2022-06-03 13:02 | XMS_ITS | Encounter Summary ---
:1945 Author Organization [place] Address [address] [place], [place] [address]. [place] [address] Care Team Providers Name Role Phone Luke Cheema MD Primary Care Provider Reason for Visit Auth/Cert Specialty Diagnoses / Procedures Referred By Contact Refer red To Contact Surgery Diagnoses BLADDER TUMOR, GROSS HEMATURIA Sh Periop Services Procedures COMBINED CYSTOSCOPY, TRANSURETHRAL RESECTION (TUR) TUMOR BLADDER INSTILL CHEMOTHERAPY [address] [place] [address] Phone: Referral ID Status Reason Start Date Expiration Date Visits Requ ested Visits Authorized [id number] 1 1 Encounter Details Date Type Department Care Team Description 04/28/2015 Anesthesia Event [facility] Ser nola Guerra MD [address] [facility]OLOGISTS [place] [address] [phone] [place] [id number] (Wo rk) Anesthesia Record Procedure Summary Procedure Name Responsible Anesthesia Start Anesthesia Stop Anesthesiologist Time Time CYSTOSCOPY, BILATERAL Sea Rivas MD 04/28/15 1114 1 06/28/14 1210 RETROGRADES, TRANSURETHRAL RESECTION OF BLADDER TUMOR WITH INTERVESICAL INSTILLATION MITOMYCIN C (Urethra) Events Date Time Event Comment 04/28/2015 1046 1114 An Start 1114 An Start Data 1116 An Induction 1116 MD Present 1120 An LMA 1120 AN START SEVO 1132 AN INCISION 1156 AN END SEVO 1204 an stop data 1210 An Stop Electronically s igned by Torie Nuñez on April 28, 2015 12:10 PM Name Total ePHEDrine 5 mg/mL 10 mg fentanyl 50mcg/mL 100 mcg lidocaine 2% 100 mg midazolam 1mg/mL 1 mg ondansetron 2mg/mL 4 mg propofol 10mg/mL 200 mg gentamicin (GARAMYCIN) intermittent infusion 80 mg 80 mg lactated ringers infusion 800 mL Agents Name O2 N2O Air Exp Sevoflurane Ins Sevoflurane Blood No blood administrations on file. Lines, Drains, and Airways Type Details Placement Removal Peripheral IV 04/28/15; 1031; 16 G, 04/28/15 1031 by 04/28/15 1453 by 18 G; Left; Hand; [place] Lamb Loff, Steven, RN Chlorhexidine; RN Injectable; Tolerated well Urethral Catheter 04/28/15; 1158; No; 04/28/15 1158 by 04/07/21 0854 by Other (Comment) (Chemo Yenny Srivastava, RENAE Inp atient, Nurse instillation); 18 fr documented in this encounter Social History Tobacco Use Types Packs/Day Years Used Date Smoking Tobacco: Never Alcohol Use Standard Drinks/Week Comments No 0 (1 standard drink = 0.6 oz pure alcoho l) Sex Assigned at Date Recorded Not on file documented as of this encounter OR Notes Anesthesia Postprocedure Evaluation - Sea Rivas MD - 04/28/2015 1:04 PM CST Patient: Jaxon Olmstead Tonsager COMBINED CYSTOSCOPY, TRANSURETHRAL RESECTION (TUR) TUMOR BLADDER INSTILL CHEMOTHERAPY (N/A Urethra) COMBINED CYSTOSCOPY, RETROGRADES (Urethra) Additional InformationProcedure(s): CYSTOSCOPY, BILATERAL RETROGRADES, TRANSURETHRAL RESECTION OF BLADDER TUMOR WITH INTERVESICAL INSTILLATION MITOMYCIN C Diagnosis:BLADDER TUMOR, GROSS HEMATURIA Diagnosis Additional Information: No value filed. Anesthesia Type: General, LMA Note: Anesthesia Post Evaluation Patient location during evaluation: PACU Patient participation: Able to fully participate in evaluation Level of consciousness: sleepy but conscious and responsive to verbal stimuli Pain management: adequate Airway patency: patent Anesthetic complications: no Cardiovascular status: acceptable and hemodynamically stable Respiratory status: acceptable and unassisted Hydration status: acceptable PONV: none Last vitals: Filed Vitals: 04/28/15 1230 04/28/15 1245 04/28/15 1300 BP: 110/70 126/82 122/75 Pulse: Temp: 36.6 ??C (97.8 ??F) 36.6 ??C (97.8 ??F) Resp: 13 SpO2: 100% 98% 99% Electronically Signed By: Sea Rivas MD April 28, 2015 1:04 PM E HAND Anesthesia Preprocedure Evaluation - Sea Rivas MD - 04/28/2015 10:44 AM CST Procedure: Procedure(s): COMBINED CYSTOSCOPY, TRANSURETHRAL RESECTION (TUR) TUMOR BLADDER INSTILL CHEMOTHERAPY COMBINED CYSTOSCOPY, RETROGRADES Preop diagnosis: BLADDER TUMOR, GROSS HEMATURIA No Known Allergies Past Medical History Diagnosis Date ??? Hypertension ??? History of melanoma ??? History of kidney stones ??? Hematuria Past Surgical History Procedure Laterality Date ??? Colonoscopy ??? Genitourinary surgery kidney stones with laser ??? Soft tissue surgery REMOVAL MELANOMA - BACK Prior to Admission medications Medication Sig Start Date End Date Taking? Authorizing Provider Cyanocobalamin (VITAMIN B 12 PO) Take 1,000 mcg by mouth daily Yes Reported, Patient Pyridoxine HCl (VITAMIN B6 PO) Take 25 mg by mouth daily Yes Reported, Patient NONFORMULARY Take 400 mg by mouth daily VITAMIN B-11 Yes Reported, Patient ASPIRIN PO Take 81 mg by mouth daily Yes Reported, Patient LISINOPRIL PO Take 10 mg by mouth daily Yes Reported, Patient Current Facility-Administered Medications Ordered in [facility] Medication Dose Route Frequency Last Rate Last Dose ??? gentamicin (GARAMYCIN) intermittent infusion 80 mg 80 mg Intravenous Pre-Op/Pre-procedure x 1 dose 80 mg at 04/28/15 1033 ??? lactated ringers infusion Intravenous Continuous 25 mL/hr at 04/28/15 1033 No current [facility]-ordered outpatient prescriptions on file. Wt Readings from Last 1 Encounters: 12/05/11 76.204 kg (168 lb) Temp Readings from Last 1 Encounters: No data found for Temp BP Readings from Last 6 Encounters: 12/05/11 122/84 Pulse Readings from Last 4 Encounters: No data found for Pulse Resp Readings from Last 1 Encounters: 12/05/11 16 SpO2 Readings from Last 1 Encounters: 12/05/11 97% Recent Labs Lab Test 04/28/15 0957 POTASSIUM 4.0 No results for input(s): WBC, HGB, PLT in the last 81540 hours. No results for input(s): INR in the last 70751 hours. Invalid input(s): APTT RECENT LABS: ECG: ECHO: CXR: Anesthesia Evaluation . Pt has had prior anesthetic. No history of anesthetic complications ROS/MED HX ENT/Pulmonary: - neg pulmonary ROS (-) asthma and COPD Neurologic: - neg neurologic ROS Cardiovascular: (+) hypertension . : . . . :. . (-) CAD, CHF, ASHER, arrhythmias, dyslipidemia and stent METS/Exercise Tolerance: >4 METS Hematologic: - neg hematologic ROS Musculoskeletal: - neg musculoskeletal ROS GI/Hepatic: - neg GI/hepatic ROS Renal/Genitourinary: (+) Other Renal/ Genitourinary bladder mass with hematuria Endo: - neg endo ROS Psychiatric: - neg psychiatric ROS Infectious Disease: - neg infectious disease ROS Malignancy: - no malignancy Other: (+) no H/O Chronic Pain, Physical Exam Normal systems: pulmonary and dental Airway Mallampati: I TM distance: >3 FB Neck ROM: full Dental Cardiovascular Rhythm and rate: regular and normal Pulmonary breath sounds clear to auscultation Anesthesia Plan ASA Score: 2 . Plan for General and LMA - with Intravenous and Propofol induction. Maintenance will be Balanced. Anesthetic plan, risks, benefits and alternatives discussed with: patient or fraud representative. Routine analgesia and antiemetics . History & Physical Review History and physical reviewed and following examination; no interval change. . E HAND documented in this encounter Miscellaneous Notes Anesthesia Care Transfer Note - Torie Nuñez APRN [employer] - 04/28/2015 12:10 PM CST Patient: Jaxon Olmstead Tonsager COMBINED CYSTOSCOPY, TRANSURETHRAL RESECTION (TUR) TUMOR BLADDER INSTILL CHEMOTHERAPY (N/A Urethra) COMBINED CYSTOSCOPY, RETROGRADES (Urethra) Additional [email or web address] Diagnosis: BLADDER TUMOR, GROSS HEMATURIA Diagnosis Additional Information: No value filed. Anesthesia Type: General, LMA Note: Airway :LMA Patient transferred to:PACU Electronically Signed By: Torie Nuñez APRN [employer] [employer] April 28, 2015 12:10 PM E HAND documented in this encounter Plan of Treatment Not on filedocumented as of this encounter Visit Diagnoses Not on filedocumented in this encounter Administered Medications Inactive Administered Medications - up to 3 most recent administrations Medication Order MAR Action Action Date Dose Rate Site ePHEDrine in 0.9% NaCl injection Given 04/28/2015 11:52 AM [facility] 5 mg (diluted) PRN, Starting on Mon04/28/15 at 1148, Anesthesia Intra-op Given 04/28/2015 11:48 AM [facility] 5 mg fentaNYL (SUBLIMAZE) injection Given 04/28/2015 11:43 AM [facility] 25 mcg PRN, moderate to severe pain, Starting on Mon04/28/15 at 1116, Anesthesia Intra-op Given 04/28/2015 11:40 AM [facility] 25 mcg Given 04/28/2015 11:16 AM [facility] 50 mcg gentamicin (GARAMYCIN) intermittent infusion Given 08/2014 11:23 AM [facility] 80 mg 80 mg Routine, 80 mg, Intravenous, PRE-OP/PRE-PROCEDURE, Starting on Mon04/28/15 at 0945, For 1 dose, Indications: Perioperative Pharmacoprophylaxis, Pre-procedure lidocaine injection 2% (MDV) Given 04/28/2015 11:16 AM [facility] 100 mg PRN, Starting on Mon04/28/15 at 1116, Anesthesia Intra-op midazolam (VERSED) injection Given 04/28/2015 11:14 AM [facility] 1 mg PRN, anxiety, Starting on Mon04/28/15 at 1114, Anesthesia Intra-op ondansetron (ZOFRAN) injection Given 04/28/2015 11:24 AM [facility] 4 mg PRN, nausea, vomiting, Administer over 2-5 Minutes, Starting on Mon04/28/15 at 1124, Anesthesia Intra-op propofol (DIPRIVAN) injection 10 mg/mL v ial Given 04/28/2015 11:20 AM [facility] 50 mg PRN, Starting on Mon04/28/15 at 1116, Anesthesia Intra-op Given 04/28/2015 11:16 AM [facility] 150 mg documented in this encounter Care Teams Plant Care Worker Relationship Specialty Start Date End Date Luke Cheema MD PCP - General Family Practice 11/25/11 07/26/[address] [phone] documented as of this encounter
--- OUTSIDE RECORDS SUMMARY | 2022-06-03 13:02 | XMS_ITS | Encounter Summary ---
:1945 Author Organization [place] Address [address] [place] [address] Care Team Providers Name Role Phone Rangel Cheema MD Primary Care Provider Reason for Visit Auth/Cert - Closed Specialty Diagnoses / Procedures Referred By Contact Refer red To Contact Gastroenterology Diagnoses Polyp seen on Flex Sig Rh Endoscopy Procedures COLONOSCOPY [address] [place] [address] Phone: Fax: Referral ID Status Reason Start Date Expiration Date Visits Requ ested Visits Authorized [id number] Closed 11/26/2011 05/24/2012 1 1 Encounter Details Date Type Department Care Team Description 12/05/2011 Surgery [facility] Chapo Claire MD COLONOSCOPY polyp with Endoscopy [place] XXX RETIRED XXX hot Bx [address] [place] [address] [place], [place] [phone] (Wo rk) [address] [phone] Surgery Details Date/Time Status Location OR Service Patient Class Case Case Trauma Class Type Case? 12/05/11 Posted GI GI B Gastroenterology Outpatient 11:30 AM Panel 1 Procedure LRB Anes Op Region Wound Class Commen ts COLONOSCOPY polyp N/A Conscious Rectum II-Clean COLONOS COPY polyp with hot Bx Sedation Contaminated with hot Bx Surgeon Surgeon Role Service Panel Chapo Claire MD Primary Gastroenterology 1 Special Needs Ref: Dr Rangel Cheema documented in this encounter Social History Tobacco Use Types Packs/Day Years Used Date Smoking Tobacco: Never Alcohol Use Standard Drinks/Week Comments No 0 (1 standard drink = 0.6 oz pure alcoho l) Sex Assigned at Date Recorded Not on file documented as of this encounter Last Filed Vital Signs Vital Sign Reading Time Taken Comments Blood Pressure 122/84 12/05/2011 12:50 PM CDT Pulse - - Temperature - - Respiratory Rate 16 12/05/2011 12:50 PM CDT Oxygen Saturation 97% 12/05/2011 12:50 PM CDT Inhaled Oxygen Concentration - - Weight 76.2 kg (168 lb) 12/05/2011 11:38 AM CDT Height 175.3 cm (5' 9) 12/05/2011 11:38 AM CDT Body Mass Index 24.81 12/05/2011 11:38 AM CDT documented in this encounter Medications at Time of Discharge Medication Sig Dispensed Refills Start Date End Date LISINOPRIL PO Take 10 mg by mouth daily 0 documented as of this encounter H&P Notes Chapo Claire MD - 12/05/2011 11:42 AM CDT Pre-Endoscopy History and Physical Ramses Olmstead Tonsager Date of : 1945 Age: [age] year old Date of Procedure: 12/05/2011 Primary care provider: Rangel Cheema MD Type of Endoscopy: colonoscopy Reason for Procedure: polyp on flex sig Type of Anesthesia Anticipated: Moderate (conscious) sedation } HPI: Ramses is a 66 year old male who will be undergoing the above procedure. A history and physical has been performed. The patient's medications and allergies have been reviewed. The risks and benefits of the procedure and the sedation options and risks were discussed with thepatient. All questions were answered and informed consent was obtained. He denies a personal or family history of anesthesia complications or bleeding disorders. No Known Allergies Current Facility-Administered Medications Medication ??? DISCONTD: midazolam (VERSED) 1 MG/ML injection ??? DISCONTD: fentaNYL (SUBLIMAZE) 0.05 MG/ML injection ??? DISCONTD: atropine 0.4 MG/ML injection ??? Lidocaine 1% injection 1 mL ??? lidocaine 4 % (LMX4) cream ??? sodium chloride (PF) 0.9% flush 3 mL ??? sodium chloride (PF) 0.9% flush 3 mL There is no problem list on file for this patient. Past Medical History Diagnosis Date ??? Hypertension Past Surgical History Procedure Date ??? Colonoscopy ??? Genitourinary surgery kidney stones with laser History Substance Use Topics ??? Smoking status: Never Smoker ??? Smokeless tobacco: Not on file ??? Alcohol Use: No History reviewed. No pertinent family history. REVIEW OF SYSTEMS: 5 point ROS negative except as noted above in HPI, including Gen., Resp., CV, GI & system review. PHYSICAL EXAM: BP 138/92 Resp 14 Ht 1.753 m (5' 9) Wt 76.204 kg (168 lb) BMI 24.81 kg/m2 SpO2 99% Estimated Body mass index is 24.81 kg/(m^2) as calculated from the following: Height as of this encounter: 5' 9(1.753 m). Weight as of this encounter: 168 lb(76.204 kg). GENERAL APPEARANCE: healthy MENTAL STATUS: alert AIRWAY EXAM: Mallampatti Class I (visualization of the soft palate, fauces, uvula, anterior and posterior pillars) RESP: lungs clear to auscultation - no rales, rhonchi or wheezes CV: normal S1 S2, no S3 or S4 DIAGNOSTICS: Not indicated IMPRESSION ASA Class 1 - Healthy patient, no medical problems PLAN: colonoscopy The above has been forwarded to the consulting provider. Signed Electronically by: Chapo Claire December 05, 2011 . documented in this encounter Nursing Notes Melinda Golden RN - 12/05/2011 11:51 AM CDT 1151 ileum reached documented in this encounter Plan of Treatment Scheduled Orders Name Type Priority Associated Diagnoses Order S chedule PATIENT HANDOUT Procedures Routine Polyp of colon Ordered: 0 12/05/2011 documented as of this encounter Procedures Procedure Name Priority Date/Time Associated Diagnosis Comme nts SURGICAL PATHOLOGY Routine 12/05/2011 11:58 AM Re sults for this EXAM CDT procedure are i n the results section. COLONOSCOPY, WITH 12/05/2011 11:34 AM polyp LESION EXCISION CDT USING HOT BIOPSY DEVICE Special Needs Ref: Dr Rangel Cheema COLONOSCOPY Routine 12/05/2011 11:25 AM CDT Resu lts for this procedure are in the results section . documented in this encounter Results Surgical pathology exam (12/05/2011 11:58 AM CDT) Component Value Ref Test Analysis Performed At [facility] gist Range Method Time Signature Copath Patient Name: RAMSES LOTT Report MR#: [id number] Specimen #: [id number] Collected: 12/05/2011 Received: 12/05/2011 Reported: 12/07/2011 12:03 Ordering Phy(s): CHAPO CLAIRE Additional Phy(s): RANGEL CHEEMA SPECIMEN(S): Sigmoid colon polyp FINAL DIAGNOSIS: Sigmoid colon polyp, biopsy/polypectomy - Benign neural prol iferation (neuroma vs schwannoma or Schwann cell hamartoma). Electronically signed out by: Parker Wolfe M.D. CLINICAL HISTORY: Polyp on flex. Sig. GROSS: The specimen is labeled polyp sigmoid colon and it consist s of a 0.3 x 0.2 x 0.1 cm pink fragment of tissue. ??Entirely submitted. ??SAADIA/ade MICROSCOPIC: Sections show a mucosal nodule composed of bland spindled ce lls. ??An immunoperoxidase stain panel with appropriate controls was p erformed to help better identify cell type. ??These cells are negative f or CD117, CD34, and smooth muscle actin. ??They are strongly positive for S100. CYRIL shows a weak blush of positivity. ??A perineuroma, schwa nnoma, hamartoma, neurofibroma, leiomyoma and small gist were consi dered in the differential. ??Ganglion cells are not identified. ??The str guy diffuse positivity for S100 supports fa benign neural proliferation such a schwannoma or Schwann cell hamartoma. ??There is no evidence of malignancy. Case internally consulted with additional pathologist. SAADIA/ade DT/12-06-11 TESTING LAB LOCATION: [address] ??[phone] COLLECTION SITE: Client: [facility] Location: [facility] (R) Specimen Anatomical Collection Method Collection Time Receive d Time (Source) Location / / Volume Laterality 12/05/2011 11:58 12/05/2011 AM CDT 12:10 PM CDT Chapo Claire MD [facility] Organization Address City/State/ZIP Code Phon e Number COPATH COLONOSCOPY (12/05/2011 11:25 AM CDT) [facility] Method Time Signature COLONOSCOPY [facility] RAD IOLOGY RESULTS Patient Name: Ramses Lott ?Procedure Date: 12/05/2011 11:25:41 AM ? Date of : 1945 ?Admit Type: Outpatient ? Age: 66 ? Gender: Male ? Attending MD: Chapo Rivera MD ? Procedure: ?Colonoscopy Indications: ?Colon polyp seen on flexi ble sigmoidoscopy Providers: ?Chapo Claire MD Referring MD: ? Rangel Cheema MD Medicines: ?Fentanyl 100 micrograms IV, Midazolam 1.5 mg IV, ?Atropine 0.6 mg IV Complications: ?No immediate complications Procedure: ?Pre-Anesthesia Assessment: ?- Prior to the procedure, a History and Physical ?was performed, and patient medications and ?allergies were reviewed. The patient is competent. ?The risks and benefits of the procedure and the ?sedation options and risks were discussed with the ?patient. All questions were answered and informed ?consent was obtained. Patient identification and ?proposed procedure were verified by the physician ?in the procedure room. Mental Status Examination: ?alert and oriented. Airway Examination: normal ?oropharyngeal airway and neck mobility. Respiratory ?Examination: clear to auscultation. CV Examination: ?normal. ASA Grade Assessment: I - A normal, healthy ?patient. After reviewing the risks and benefits, ?the patient was deemed in satisfactory condition to ?undergo the procedure. The anesthesia plan was to ?use moderate sedation / analgesia (conscious ?sedation). Immediately prior to administration of ?medications, the patient was re-assessed for ?adequacy to receive sedatives. The heart rate, ?respiratory rate, oxygen saturations, blood ?pressure, adequacy of pulmonary ventilation, and ?response to care were monitored throughout the ?procedure. The physical status of the patient was ?re-assessed after the procedure. ?After obtaining informed consent, the colonoscope ?was passed under direct vision. Throughout the ?procedure, the patient's blood pressure, pulse, and ?oxygen saturations were monitored continuously. The ?Colonoscope was introduced through the anus and ?advanced to the terminal ileum. The colonoscopy was ?performed without difficulty. The patient tolerated ?the procedure well. The quality of the bowel ?preparation was good. ? Findings: ? The digital rectal ex am was normal. A few small-mouthed diverticula were ? found in the sigmoid colon. A sessile polyp was fou nd in the sigmoid ? colon. The polyp was 3 mm in size . This was biopsied with a hot forceps ? for histology. The re ctum, descending colon, splenic flexure, transverse ? colon, hepatic flexure, ascending colon, cecum, deirdre endiceal orifice, ? ileocecal valve and ileum appeared normal . The retroflexed view of the ? anal verge was normal and showed no anal or rec jill abnormalities. The ? terminal ileum appeared normal. ? Impression: ? - Diverticulosis sigmoid co denzel. ?- One 3 mm polyp in the sigmoid colon. Tissue was ?removed. This was bio psied. ?- The rectum, descending colon, splenic flexure, ?transverse colon, hepatic flexure, ascending colon, ?cecum, appendiceal orifice, ileocecal valve and ?terminal ileum are no rmal. ?- The examined portion of the ileum was normal. Recommendation: ? - Discharge patient to home ( ambulatory). ?- If polyp is adenomatous repeat colonoscopy in 4 ?years. If polyp is hyperplastic repeat colonoscopy ?in 10 years. ?- Return to primary care physician PRN. ? R Martha Navarro Chapo Claire MD Signed Date: 12/05/2011 12:02:19 PM Number of Addenda: 0 I was physically present for the entire viewing portion of t he exam. Note Initiated On: 12/05/2011 11:25:41 AM Scope Withdrawal Time: 0 hours 8 minutes 37 seconds Total Procedure Duration: 0 hours 11 minutes 35 seconds Specimen (Source) Anatomical Collection Method Collection Time Re ceived Time Location / / Volume Laterality 12/05/2011 11:25 AM CDT Rangel Cheema MD PROCEDURES Performing Organization Address City/State/ZIP Code Phon e Number RADIOLOGY RESULTS documented in this encounter Visit Diagnoses Not on filedocumented in this encounter Administered Medications Inactive Administered Medications - up to 3 most recent administrations Medication Order MAR Action Action Date Dose Rate Site atropine injection Given 12/05/2011 11:44 AM CDT 0.6 mg PRN, Starting on 12/05/11 at 1144, Intra-procedure fentaNYL (SUBLIMAZE) injection Given 12/05/2011 11:44 AM CDT 100 mcg PRN, moderate to severe pain, Starting on 12/05/11 at 1144, Intra-procedure midazolam (VERSED) injection Given 12/05/2011 11:44 AM CDT 1.5 mg PRN, anxiety, Starting on 12/05/11 at 1144, Intra-procedure documented in this encounter Active and Recently Administered Medications Times are shown in CDT. PRN Medication Order 12/03/2011 12/04/2011 12/05/2011 atropine injection (CANCELED) 11 44 (Given - Provider: Chapo Claire MD) PRN, Starting 12/05/11 at 1144, Intra-procedure fentaNYL (SUBLIMAZE) injection (CANCELED) 1144 (Given - Provider: Chapo Claire MD) PRN, moderate to severe pain, Starting 12/05/11 at 1144, Intr a-procedure midazolam (VERSED) injection (CANCELED) 1144 (Given - Provider: Chapo Claire MD) PRN, anxiety, Starting 12/05/11 at 1144, Intra-procedure documented in this encounter Care Teams Administrative Job Titles Relationship Specialty Start Date End Date Rangel Cheema MD PCP - General Family Practice 11/25/11 07/26/[address] [phone] documented as of this encounter
--- OUTSIDE RECORDS SUMMARY | 2022-06-03 13:02 | XMS_ITS | Encounter Summary ---
:1945 Author Organization [place] Address [address] [place] [address] Care Team Providers Name Role Phone Luke Cheema MD Primary Care Provider Reason for Visit Rehab Therapy Cardiac Therapy (Routine) - Closed Specialty Diagnoses / Procedures Referred By Contact Refer red To Contact CARDIAC REHAB Diagnoses Medicare//[place], PEGGY RCA 09/01 Requested recs/order [facility] Procedures EVALUATION [address] [place] [address] [address] [place] [address] Phone: Fax: Referral ID Status Reason Start Date Expiration Date Visits V isits Requested Authorized [facility] -[facility] Closed 09/07/2015 06/25/2016 36 36 ([id number]) Encounter Details Date Type Department Care Team Description 09/23/2015 Hospital Encounter [facility] Cardiac Epi Montemayor MD [address] [place] [address] and Pulmonary 1, Rh Cardiac Rehab [facility] [id number] [place] [address] [address] [place] [address] Social History Tobacco [...] on filedocumented in this encounter Care Teams Cable Ferry Operator Relationship Specialty Start Date End Date Luke Cheema MD PCP - General Family Practice 11/25/11 07/26/[address] [address] documented as of this encounter
--- OUTSIDE RECORDS SUMMARY | 2022-06-03 13:02 | XMS_ITS | Encounter Summary ---
:1945 Author Organization [place] Address [address] [place] [address]. [place] [address] Care Team Providers Name Role Phone Unavailable Primary Care Provider Unavailable Encounter Details Date Type Department Care Team Description 02/12/2007 Historic Results INTERFACED REPORT Andrew Mtz MD [facility] [address] [place], [place] [id number] (Wo rk) Social History Tobacco Use Types Packs/Day Years Used Date Smoking Tobacco: Never Assessed Sex Assigned at Date Recorded Not on file documented as of this encounter Plan of Treatment Not on filedocumented as of this encounter Procedures Procedure Name Priority Date/Time Associated Diagnosis Comme nts STONE ANALYSIS Routine 02/12/2007 9:20 AM Results for this CDT procedure are i n the results section . HISTOPATHOLOGY Routine 02/12/2007 12:00 AM Result s for this CDT procedure are i n the results section . documented in this encounter Results Stone analysis (02/12/2007 9:20 AM CDT) [facility] gist Method Time Signature Stone SEE NOTE MISYS Composition Comment: (Note) Specimen recieved damp, not in preferred dry state. ??Damp specimens often delay analysis. Calculi composed primarily of: 60% calcium oxalate monohydrate (whewell ite), 20% calcium oxalate dihydrate (weddellit e), and 20% calcium phosphate (hydroxy- and carb sophia- apatite). Stone Mass 914 MISYS Comment: Unit: mg (Note) TEST INFORMATION: Calculi (Stone) analys is Human and/or animal calculi are the prod ucts of physiological processes that yield cryst alline compounds in a matrix of biological compounds and blood. The clinically significant crystalline compo nents identified in calculi samples are documented on the sample report. Matrix components are not reported. Performed by [facility], [address] [place] [id number] [email or web address], ??Jose Luis Sims MD - Lab. Director Specimen Anatomical Collection Method Collection Time Receive d Time (Source) Location / / Volume Laterality 02/12/2007 9:20 AM 7 CDT 10:23 AM CDT Golden Mtz MD LAB - BODY FLUIDS ORDERABLES Performing Organization Address City/State/ZIP Code Phon e Number MISYS Histopathology (02/12/2007 12:00 AM CDT) Component Value Ref Test Analysis Performed At [facility] gist Range Method Time Signature Copath Report CASE: [id number] ^ COPATH Patient Name: RAMSES LOTT MR#: [id number] Specimen #: [id number] Collected: 02/12/2007 Received: 02/12/2007 Reported: 02/13/2007 17:37 Ordering Phy(s): GOLDEN MTZ SPECIMEN(S): Bladder, biopsy and calculus FINAL DIAGNOSIS: Prostate, transurethral resection with removal of bladder st ones: 1. ??Calcular material identified grossly, sample has been s ubmitted to a reference laboratory for composition studies, as requested. 2. ??Benign prostate tissue present, predominantly stroma, s howing no evidence of atypia or malignancy. Electronically signed out by: Jackelin Hendrix M.D. CLINICAL HISTORY: Prostatic hypertrophy - bladder stones. GROSS: The specimen is labeled bladder stones. The specimen consi sts of multiple similar-appearing, boswell, hard stones, the largest me asuring up to 0.7 cm. ??Also in the container are multiple boswell, rubbery , irregular-shaped tissue fragments measuring 2.0 x 1.2 x 0.4 cm in aggregate. ??The stonesare sent out for calculus (stone) danika lysis, and the tissue is entirely submitted. ??SI ??TRS/betty MICROSCOPIC: Examination of the non-calcular material present as a part o f the sample, shows benign prostate tissue, which is largely bertha a. ??A focal benign urothelial lining is seen, and a few cauterized benig n prostate glands are present. ??There is no evidence of atypia or inva sive carcinoma. KPF/tw 02/13/2007 TESTING LAB LOCATION: [address] ??[phone] COLLECTION SITE: Client: [facility] Location: [facility] (S) Specimen (Source) Anatomical Collection Method Collection Time Re ceived Time Location / / Volume Laterality 02/12/2007 02/13/2007 5:37 PM CDT Golden Mtz MD LAB - COPATH SPECIAL DIAG OR DERABLES Performing Organization Address City/State/ZIP Code Phon e Number COPATH documented in this encounter Visit Diagnoses Not on filedocumented in this encounter
--- OUTSIDE RECORDS SUMMARY | 2022-06-03 13:02 | XMS_ITS | Encounter Summary ---
:1945 Author Organization [place] Address [address] [place] [address] Care Team Providers Name Role Phone Luke Cheema MD Primary Care Provider Reason for Visit Rehab Therapy Cardiac Therapy (Routine) - Closed Specialty Diagnoses / Procedures Referred By Contact Refer red To Contact CARDIAC REHAB Diagnoses Medicare//[place], PEGGY RCA 09/01 Requested recs/order [facility] Procedures EVALUATION [address] [place] [address] [address] [place] [address] Phone: Fax: Referral ID Status Reason Start Date Expiration Date Visits V isits Requested Authorized [facility] -[facility] Closed 09/07/2015 06/25/2016 36 36 ([id number]) Encounter Details Date Type Department Care Team Description 09/10/2015 Hospital Encounter [facility] Cardiac Epi Montemayor MD [address] [place] [address] and Pulmonary 3, Rh Cardiac Rehab [facility] [address] [place] [address] [address] [place] [address] Social History Tobacco Use [...] on filedocumented in this encounter Care Teams Infant Lead Teacher Relationship Specialty Start Date End Date Luke Cheema MD PCP - General Family Practice 11/25/11 07/26/[address] [phone] documented as of this encounter
--- OUTSIDE RECORDS SUMMARY | 2022-06-03 13:02 | XMS_ITS | Encounter Summary ---
:1945 Author Organization [place] Address [address] [place] [address] Care Team Providers Name Role Phone Unavailable Primary Care Provider Unavailable Encounter Details Date Type Department Care Team Description 11/07/2005 Historic Results INTERFACED REPORT Samir [place] [address] (Wo rk) Social History Tobacco Use Types Packs/Day Years Used Date Smoking Tobacco: Never Assessed Sex Assigned at Date Recorded Not on file documented as of this encounter Plan of Treatment Not on filedocumented as of this encounter Procedures Procedure Name Priority Date/Time Associated Diagnosis Comme nts URINE CULTURE Routine 11/07/2005 8:05 AM Results for this CDT procedure are i n the results section . documented in this encounter Results Urine culture (11/07/2005 8:05 AM CDT) [facility] Method Time Signature Specimen Midstream MISYS Description Urine Culture Micro No growth MISYS Micro Report FINAL MISYS Status [id number] Specimen Anatomical Collection Method Collection Time Receive d Time (Source) Location / / Volume Laterality 11/07/2005 8:05 AM 6 9:17 CDT AM CDT Samir Thomas MD LAB - MICRO GENERAL ORDERABL ES Performing Organization Address City/State/ZIP Code Phon e Number MISYS documented in this encounter Visit Diagnoses Not on filedocumented in this encounter
--- OUTSIDE RECORDS SUMMARY | 2022-06-03 13:02 | XMS_ITS | Encounter Summary ---
:1945 Author Organization [place] Address [address] [place] [address] Care Team Providers Name Role Phone Rangel Cheema MD Primary Care Provider Reason for Visit Auth/Cert - Closed Specialty Diagnoses / Procedures Referred By Contact Refer red To Contact Gastroenterology Diagnoses Polyp seen on Flex Sig Rh Endoscopy Procedures COLONOSCOPY [address] [place] [address] Phone: Fax: Referral ID Status Reason Start Date Expiration Date Visits Requ ested Visits Authorized [id number] Closed 11/26/2011 05/24/2012 1 1 Encounter Details Date Type Department Care Team Description 12/05/2011 Hospital Encounter [facility] Jimmy Claire MD Polyp of colon Endoscopy [place] XXX RETIRED XXX [address] [place] [address] [place], [place] [phone] (Work) [phone] Social History Tobacco Use Types Packs/Day Years [...] AM CDT Pre-Endoscopy History and Physical Ramses Lott Date of : 1945 Age: [age] year [...] documented in this encounter Nursing Notes Melinda Golden, RENAE - 12/05/2011 11:51 AM CDT 1151 ileum [...] Component Value Ref Test Analysis Performed At [facility] Range Method Time Signature Copath Patient Name: RAMSES LOTT MEENU Report MR#: [id number] Specimen #: [id number] Collected: 12/05/2011 Received: 12/05/2011 Reported: 12/07/2011 12:03 [...] additional pathologist. SAADIA/ade DT/12-06-11 TESTING LAB LOCATION: [address] ??[phone] COLLECTION SITE: Client: [facility] Location: [facility] (R) Specimen Anatomical Collection Method Collection Time Receive d Time (Source) Location / / Volume Laterality 12/05/2011 11:58 12/05/2011 AM CDT 12:10 PM CDT Chapo Claire MD [facility] Performing Organization Address City/State/ZIP Code Phon e Number COPATH COLONOSCOPY (12/05/2011 11:25 AM CDT) [facility] gist Method Time Signature COLONOSCOPY [facility] RAD IOLOGY RESULTS Patient Name: Ramses Lott [...] Return to primary care physician PRN. ? Alf Claire M.D Chapo Claire MD Signed Date: 12/05/2011 12:02:19 [...] RESULTS documented in this encounter Visit Diagnoses Diagnosis Polyp of colon Benign neoplasm of colon documented in this encounter Active and Recently [...] Intra-procedure documented in this encounter Care Teams Molded Rubber Goods Cutter Relationship Specialty Start Date End Date Rangel Cheema MD PCP - General Family Practice 11/25/11 07/26/[address] [phone] documented as of this encounter
--- OUTSIDE RECORDS SUMMARY | 2022-06-03 13:02 | XMS_ITS | Encounter Summary ---
:1945 Author Organization [facility] Address [address] [place] [address] Care Team Providers Name Role Phone Luke Cheema MD Primary Care Provider Reason for Visit Auth/Cert Specialty Diagnoses / Procedures Referred By Contact Refer red To Contact Surgery Diagnoses BLADDER TUMOR, GROSS HEMATURIA Sh Periop Services Procedures COMBINED CYSTOSCOPY, TRANSURETHRAL RESECTION (TUR) TUMOR BLADDER INSTILL CHEMOTHERAPY [address] [place] [address] Phone: Referral ID Status Reason Start Date Expiration Date Visits Requ ested Visits Authorized [id number] 1 1 Encounter Details Date Type Department Care Team Description 04/28/2015 Surgery [facility] Ellen Mtz MD CYSTOSCOPY, BILATERAL [place] [facility], Services PA TRANSURETHRAL RESECTION [address] OF BLADDER TUMOR WITH [address] [place] [address] [place] [address] MITOMYCIN C [phone] Surgery Details Date/Time Status Location OR Service Patient Case Class Case Tr auma Class Type Case? 04/28/15 11:15 Posted OR OR [facility] Same Day Outpatient in AM 18 Surgery Bed Panel 1 Procedure LRB Anes Op Region Wound Class Commen ts CYSTOSCOPY, BILATERAL N/A General Urethra II-Clean CYS TOSCOPY, BILATERAL RETROGRADES, Contaminated RETROGRADE S, TRANSURETHRAL TRANSURETHR AL RESECTION OF BLADDER RESE CTION OF BLADDER TUMOR WITH TUMOR WITH INTERVESICAL INTERVESICAL INSTILLATION MITOMYCIN IN STILLATION C MITOMYCIN C CYSTOSCOPY, WITH Urethra II-Clean RETROGRADE PYELOGRAM Contaminated Surgeon Surgeon Role Service Panel Ellen Mtz MD Primary Urology 1 documented in this encounter Social History Tobacco Use Types Packs/Day Years Used Date Smoking Tobacco: Never Alcohol Use Standard Drinks/Week Comments No 0 (1 standard drink = 0.6 oz pure alcoho l) Sex Assigned at Date Recorded Not on file documented as of this encounter Last Filed Vital Signs Vital Sign Reading Time Taken Comments Blood Pressure 112/70 04/28/2015 12:15 PM BUSINESS SERVICES MANAGER Pulse 55 04/28/2015 10:54 AM BUSINESS SERVICES MANAGER Temperature 36.4 ??C (97.6 ??F) 04/28/2015 12:06 PM BUSINESS SERVICES MANAGER Respiratory Rate 25 04/28/2015 12:15 PM BUSINESS SERVICES MANAGER Oxygen Saturation 99% 04/28/2015 12:15 PM BUSINESS SERVICES MANAGER Inhaled Oxygen Concentration - - Weight 75.3 kg (166 lb) 04/28/2015 11:13 AM BUSINESS SERVICES MANAGER Height 172.7 cm (5' 8) 04/28/2015 11:13 AM BUSINESS SERVICES MANAGER Body Mass Index 25.24 04/28/2015 11:13 AM BUSINESS SERVICES MANAGER documented in this encounter Discharge Instructions Discharge InstructionsJose D Fuentes RN - 04/28/2015 12:31 PM CST Same Day Surgery Discharge Instructions for Sedation and General Anesthesia ?? It's not unusual to feel dizzy, light-headed or faint for up to 24 hours after surgery or while taking pain medication. If you have these symptoms: sit for a few minutes before standing and have someone assist you when you get up to walk or use the bathroom. ?? You should rest and relax for the next 24 hours. You must make arrangements to have an adult staywith you for at least 24 hours after your discharge. Avoid hazardous and strenuous activity. ?? DO NOT DRIVE any vehicle or operate mechanical equipment for 24 hours following the end of your surgery. Even though you may feel normal, your reactions may be affected by the medication you have received. ?? Do not drink alcoholic beverages for 24 hours following surgery. ?? It's not unusual to feel nauseated and/or vomit after receiving anesthesia. If you develop these symptoms, drink clear liquids (apple juice, jessica kasia, broth, 7-up, etc. ) until you feel better. Slowly progress to your regular diet as you feel able. If your nausea and vomiting persists for 24 hours, please notify your surgeon. ?? All narcotic pain medications, along with inactivity and anesthesia, can cause constipation. Drinking plenty of liquids and increasing fiber intake will help. ?? For any questions of a medical nature, call your surgeon. ?? Do not make important decisions for 24 hours. ?? If you had general anesthesia, you may have a sore throat for a couple of days related to the breathing tube used during surgery. You may use Cepacol lozenges to help with this discomfort. If it worsens or if you develop a fever, contact your surgeon. ?? If you feel your pain is not well managed with the pain medications prescribed by your surgeon, please contact your surgeon's office to let them know so they can address your concerns. If you have questions or concerns about your procedure, call Dr. Mtz at [phone] Chemotherapy Bladder Instillation Chemotherapy bladder instillation is a treatment for bladder cancer. It involves sending a liquid chemotherapy medication up into your bladder through a catheter. The medication kills cancer cells on the bladder wall and may prevent or delay their return. Home instructions: The medication used in the instillation are very harsh. Even after they leave your body, they can irritate any skin they come in contact with. Following Chemotherapy Bladder Instillation for the next 48 hours: 1. Sit down on the toilet when urinating and fully empty your bladder. 2. Flush the toilet with the lid closed. Flush more than once if necessary. 3. If incontinence is a possibility, wear an incontinence pad. If urine touches any skin surfaces, wash thoroughly with soap and water. 4. Wash hands thoroughly after going to the bathroom. 5. Drink plenty of fluids. 6. If care givers are or breast feeding, they may be in contact with you but should not handle anything that may contain you bodily fluids. Call your surgeon for temperature greater than 101, difficulty urinating, excessive blood in your urine. DISCHARGE INSTRUCTIONS FOR CATHETER CARE AT HOME . Basic Catheter Care 1. Always wash hands before and after handling your catheter. 2. Use soap and water to wash the area around your catheter. 3. Do this procedure twice a day. 4. Proper cleansing will help keep the area from becoming irritated or infected. Leg Bag This is a small plastic bag that collects urine draining from your catheter and then strapped aroundyour thigh. It will need to be emptied when the bag is 1/2 to 3/4 full. Large Drainage Bag 1. This bag is larger than the leg bag and holds more urine. It is to be used while at home, especially at night. 2. Before you go to bed, change the leg bag to the large drainage bag. 3. Pinch off the catheter with your fingers and swab the connection between the catheter and leg bagwith alcohol sponge. 4. Disconnect the leg bag and connect the large drainage bag to your catheter. 5. When you get into bed, arrange the drainage tubing so that it doesn???t kink. 6. Be sure to keep the bag below the level of your bladder and allow enough slack for turning. Cleaning Your Drainage Bags 1. Wash hands. 2. Using funnel or syringe, fill the bag half full with a solution of 1/2 vinegar and 1/2 water. 3. Shake bag, allowing mixture to cleanse inside of bag. 4. Empty out all vinegar and water mixture from your bag. 5. Hang bag to dry when not in use. 6. Clean your bags anytime you change them. Helpful Hints 1. Always keep drainage bags below bladder level to insure adequate drainage. 2. Drink 4-6 glasses of water daily along with other fluids you normally drink to keep urine free ofinfection and / or clots. 3. If you notice no urine in your bag for 2 to 4 hours or you develop extreme discomfort in bladder area, your catheter maybe plugged. Notify your doctor. 4. If you notice your urine becomes foul smelling and cloudy, notify your doctor. Also notify your doctor if you develop fever or chills. 5. If you notice urine leaking around the outside of the catheter, check to be sure catheter or tubing is not kinked. 6. Don???t use leg bag while in bed. NESS SERVICES MANAGER documented in this encounter Medications at Time [...] PO) daily documented as of this encounter Nursing Notes Jose D Fuentes RN - 04/28/2015 12:42 PM CST 1245 - Patient awake now. Rolled to right lateral position as part of Mitomycin Tx. 1300 - Rolled to left lateral position. 1315 - Rolled to prone position. 1330 - Rolled to supine, trendelenburg position. 1345 - Returned to flat supine position. 3-way Nobles Catheter opened to drainage; 250 ml cler, purple urine drained. Sterile water irrigation begun. No apparent blood or clot in urine. Denies discomfort. 1430 - Total of 2000 ml clear urine returned. Irrigation completed. Switched to leg bag for discharge. Nobles care discussed and demonstrated for both Mr. Lawler and his . 1450 - PNDS met, po per I&O sheet. Pt dressed, up in recliner and transported to Phase 2. NESS SERVICES MANAGER Venice Lamb RN - 04/28/2015 10:56 AM CST at bedside she took his watch and ring NESS SERVICES MANAGER documented in this encounter Miscellaneous Notes Op Note - Ellen Mtz MD - 04/28/2015 12:09 PM CST PREOPERATIVE DIAGNOSES: 1. Gross hematuria. 2. Nodular bladder tumor. POSTOPERATIVE DIAGNOSES: 1. Gross hematuria. 2. Nodular bladder tumor. 3. Final pathology pending. PROCEDURES: 1. Cystoscopy, bilateral retrogrades. 2. Transurethral resection of bladder tumor including deep biopsies. 3. Instillation of mitomycin-C. SURGEON: Ellen Mtz MD ANESTHESIA: General. ESTIMATED BLOOD LOSS: Less than 5 mL. SUMMARY OF FINDINGS: 1. Nodular bladder tumor, final pathology pending. 2. Normal bilateral retrogrades. BRIEF HISTORY AND PHYSICAL: Ramses Lawler is a 70-year-old male with a history of gross, total, painless hematuria. The patient does have a past history for BPH and underwent a laser TURP in 2006. He is a nonsmoker. He did undergo a CT scan which demonstrated evidence of a 1.5 cm mass involving the dome of the bladder suspicious for neoplasm referred back to Urology, underwent diagnostic cystoscopy and was confirmed diagnosis of a nodular tumor located to the left side of the dome of the bladder. He is now scheduled for definitive treatment. The procedure was thoroughly explained to the patient including possible complications and realistic expectations. He has elected to proceed. DESCRIPTION OF PROCEDURE: Proper permits were obtained and signed. The patient after general anesthesia, he was prepped and draped in the usual sterile fashion. A 22 Stateless Storz was visually passed urethra, which was normal. Prostate demonstrated evidence of previous resection and was relatively open. There was some evidence of residual left lobe adenoma. Bladder trigone was normal. Both orifices were visualized and demonstrated clear efflux. There was approximately 1.5-2 cm nodular tumor located to the left dome of the bladder. No other lesions were noted. The patient underwent bilateral retrograde pyelograms with an 8 acorn catheter which demonstrated adequate filling of both ureters and collecting systems, which were completely normal drainage also wasnormal. The 26 Stateless continuous flow resectoscope then was visually passed into the bladder. The patient underwent resection of the bladder tumor including deep biopsies. Care was taken for adequate hemostasis. All tumor chips removed from the bladder. He did have evidence of a small bladder diverticulum. Noevidence of bleeding was noted. A 20 3-way Nobles catheter was placed, 40 mg of mitomycin were instilled into the bladder and he was taken to the recovery room in stable condition. ELLEN MTZ MD MT: [id number] Name: RAMSES LAWLER Account: [id number] : 1945 Procedure Date: 04/28/2015 Document: [id number] cc: Luke Mtz MD NESS SERVICES MANAGER Brief Op Note - Ellen Mtz MD - 04/28/2015 12:04 PM CST [facility] Brief Operative Note Pre-operative diagnosis: BLADDER TUMOR, GROSS HEMATURIA Post-operative diagnosis Final path pending Procedure: Procedure(s): CYSTOSCOPY, BILATERAL RETROGRADES, TRANSURETHRAL RESECTION OF BLADDER TUMOR WITH INTERVESICAL INSTILLATION MITOMYCIN C Surgeon(s): Surgeon(s) and Role: * Ellen Mtz MD - Primary Estimated blood loss: 5cc Specimens: ID Type Source Tests Collected by Time Destination A : Bladder tumor Tissue SURGICAL PATHOLOGY EXAM Ellen Mtz MD 04/28/2015 11:50 AM Pathology B : Base of tumor Tissue SURGICAL PATHOLOGY EXAM Ellen Mtz MD 04/28/2015 11:52 AM Pathology Findings: Nodular tumor.normal retrogrades NESS SERVICES MANAGER documented in this encounter Plan of Treatment Pending Results Name Type Priority Associated Diagnoses Date/Ti me EKG CARDIAC - HIM SCAN EKG 04/21 12:00 AM CDT documented as of this encounter Procedures Procedure Name Priority Date/Time Associated Comments Diagnosis SURGICAL PATHOLOGY EXAM Routine 04/28/2015 11:50 Results for this AM BUSINESS SERVICES MANAGER procedure are i n the results section. XR SURGERY [place] FLUORO Routine 04/28/2015 11:40 R esults for this LESS THAN 5 MIN W STILLS AM BUSINESS SERVICES MANAGER pro cedure are in the results section. CYSTOSCOPY, WITH 04/28/2015 11:13 BLADDER TUMOR, RETROGRADE PYELOGRAM AM BUSINESS SERVICES MANAGER GROSS HEMATURIA CYSTOSCOPY, WITH 04/28/2015 11:13 BLADDER TUMOR, TRANSURETHRAL RESECTION AM BUSINESS SERVICES MANAGER GROSS HEMATURIA OF BLADDER TUMOR AND INSTILLATION OF CHEMOTHERAPEUTIC AGENT INTO BLADDER POTASSIUM STAT 04/28/2015 9:57 Results for this AM BUSINESS SERVICES MANAGER procedure are i n the results section. LAB RESULT - HIM SCAN 04/21/2015 12:00 AM CDT EKG CARDIAC - HIM SCAN 04/21/2015 12:00 AM CDT documented in this encounter Results Surgical pathology exam (04/28/2015 11:50 AM BUSINESS SERVICES MANAGER) Component Value Ref Test Analysis Performed At [facility] Range Method Time Signature Copath Report Patient Name: RAMSES LAWLER MR#: [id number] Specimen #: [id number] Collected: 04/28/2015 Received: 04/28/2015 Reported: 04/29/2015 17:01 Ordering Phy(s): ELLEN MTZ SPECIMEN(S): A: Bladder tumor B: Base of tumor FINAL DIAGNOSIS: A: Bladder tumor, transurethral resection: -Superficial fragments of papillary urothelial carcinoma, lo w grade and non-invasive -Tissue sample does not include smooth muscle B: Bladder, designated base of tumor, transurethral biopsy: -Tissue sample with smooth muscle 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 CLINICAL HISTORY: Bladder tumor and gross hematuria GROSS: A: The specimen is received labeled bladder tumor and cons ists of multiple pink-boswell to butler-boswell shaggy cauterized tissue fragm ents ranging in size from 0.1-1.2 cm. ??Entirely submitted. B: The specimen is received labeled base of tumor and cons ists of 2 pink-boswell tissue fragments measuring 0.5 and 0.[address] dimension. ??Entirely submitted. (Dictated by: Elena chavez MD 04/28/2015 01:33 PM) MICROSCOPIC: A., B. A formal microscopic examination has been performed. CPT Codes: A: 27176-GU3 B: 36158-LA4 TESTING LAB LOCATION: [address] ??[address] COLLECTION SITE: Client: [facility] Location: [facility] (S) Specimen Anatomical Collection Method Collection Time Receive d Time (Source) Location / / Volume Laterality 04/28/2015 11:50 04/28/2015 1:19 AM BUSINESS SERVICES MANAGER PM BUSINESS SERVICES MANAGER Ellen OCLE - ANISHA MAY Performing Organization Address City/State/ZIP Code Phon e Number COPATH XR Surgery [place] Fluoro L/T 5 Min w Stills (04/28/2015 11:40 AM BUSINESS SERVICES MANAGER) Specimen (Source) Anatomical Location Collection Method / Collectio n Time Received Time / Laterality Volume Narrative RADIANT - 04/28/2015 11:42 AM BUSINESS SERVICES MANAGER This exam was marked as non-reportable because it will not be read by a radiologist or a [facility] non-radiologis t provider. Ellen Mtz MD IMG DIAGNOSTIC IMAGING ORDER PEREZ Performing Organization Address City/State/ZIP [facility] Phon e Number RADIANT Potassium (04/28/2015 9:57 AM BUSINESS SERVICES MANAGER) athologist Signature Potassium 4.0 3.4 - 5.3 [place] mmol/L [facility] Specimen Anatomical Collection Method Collection Time Receive d Time (Source) Location / / Volume Laterality Blood specimen 04/28/2015 9:57 AM 015 (specimen) BUSINESS SERVICES MANAGER 10:11 AM BUSINESS SERVICES MANAGER Geraldine Buckner MD LAB - BLOOD ORDERABLES Performing Organization Address City/[facility] Phon e Number [facility] [address] [place] [phone] [facility] [address] [place] [phone], [facility] [phone] LAB RESULT - HIM SCAN (04/21/2015 12:00 AM CDT) Specimen (Source) Anatomical Location Collection Method / Collectio n Time Received Time / Laterality Volume 04/21/2015 Narrative This result has an attachment that is no t available. Provider Outside NON-BEAKER LAB TESTING documented in this encounter Visit Diagnoses Not on filedocumented in this encounter Administered Medications Inactive Administered Medications - up to 3 most recent administrations Medication Order MAR Action Action Date Dose Rate Site iopamidol (ISOVUE-300) Given 04/28/2015 11:40 12 mLs Operative IV solution 61% AM BUSINESS SERVICES MANAGER Site/Surgical S ite PRN, Starting on Mon04/28/15 at 1140, Intra-procedure lactated ringers infusion New Bag 04/28/2015 10:33 AM BUSINESS SERVICES MANAGER 25 mL/hr at 25 mL/hr, Intravenous, CONTINUOUS, IF patient NOT on dialysis., Pre-procedure, Starting on Mon04/28/15 at 1000, Until Mon04/28/15 at 1216 lactated ringers infusion New Bag 04/28/2015 1:25 PM BUSINESS SERVICES MANAGER 100 mL/hr at 100 mL/hr, Intravenous, CONTINUOUS, Continue until IV catheter is weaned, PACU/Phase II, Starting on Mon04/28/15 at 1230, Until Mon04/28/15 at 1503 lidocaine 2 % (Uro-Jet) Given 04/28/2015 11:56 AM 10 mLs Operative Site/Surgical jelly BUSINESS SERVICES MANAGER Site PRN, Starting on Mon04/28/15 at 1156, Intra-procedure lidocaine BUFFERED 1 % solution 0.1-1 mL Given 04/28/2015 10:32 AM BUSINESS SERVICES MANAGER 0.5 mLs 0.1-1 mL, Intradermal, ONCE PRN, mild pain with VAD insertion or accessing implanted port., Starting on Mon04/28/15 at 0945, For 1 dose, Do NOT give if patient has a history of allergy to any local anesthetic or any neo product., Pre-procedure mitoMYcin (MUTAMYCIN) 40 mg in sterile New Bag 04/28/2015 11:58 AM BUSINESS SERVICES MANAGER 40 mg water (preservative free) 40 mL CHEMOTHERAPY 40 mg, Bladder Instillation, ONCE, On Mon04/28/15 at 1200, For 1 dose, Vesicant. Use 60 ml Catheter Tip Syringe. Instill in bladder as directed. Not for IV use. opium-belladonna (B&O SUPPRETTES) 60-16.2 MG Given 08/2014 11:57 AM BUSINESS SERVICES MANAGER 30 mg suppository PRN, Starting on Mon04/28/15 at 1157, Intra-procedure sterile water (bottle) Given 04/28/2015 11:56 AM 1,000 mLs Operative irrigation BUSINESS SERVICES MANAGER Site/Surgical S ite PRN, Intra-procedure, Starting on Mon04/28/15 at 1156, Until Mon04/28/15 at 1503 sterile water irrigation Given 04/28/2015 11:56 AM 3,000 mLs Operative (bag) BUSINESS SERVICES MANAGER Site/Surgical S ite PRN, Intra-procedure, Starting on Mon04/28/15 at 1156, Until Mon04/28/15 at 1503 documented in this encounter Active and Recently Administered Medications Due to Daylight Saving Time, this section may contain times in both CDT and BUSINESS SERVICES MANAGER. Scheduled Medication Order 04/26/2015 04/27/2015 04/28/2015 gentamicin (GARAMYCIN) intermittent infusion 80 mg (COMPLETED) 1033 (Handoff - Provider: Venice Lamb RN)1123 (Given - Provider: Torie Nuñez APRN PASSENGER SERVICE MANAGER) 80 mg, Intravenous, PRE-OP/PRE-PROCEDURE , Starting 04/28/15 at 0945, For 1 dose, Indications: Surgical Prophylaxis, Pre-procedure mitoMYcin (MUTAMYCIN) 40 mg in sterile w ater (preservative free) 40 mL CHEMOTHERAPY (COMPLETED) 1158 (New Bag - Provider: Maricruz Srivastava, RENAE) 40 mg, Bladder Instillation, ONCE, On e 04/28/15 at 1200, For 1 dose, Vesicant. Use 60 ml Catheter Tip Syringe. Instill in bladder as directed. Not for IV use. Continuous Medication Order 04/26/2015 04/27/2015 04/28/2015 lactated ringers infusion (CANCELED) 1033 (New Bag - Provider: Venice Lamb RN)1152 (Anesthesia Volume Adjustment - Provider: Torie Nuñez APRN PASSENGER SERVICE MANAGER) at 25 mL/hr, Intravenous, CONTINUOUS, IF patient NOT on dialysis., Pre- procedure, Starting 04/28/15 at 1000, Until 04/28/15 at 1216 lactated ringers infusion (CANCELED) 1325 (New Bag - Provider: Jose D Fuentes RN) at 100 mL/hr, Intravenous, CONTINUOUS, C ontinue until IV catheter is weaned, PACU/Phase II, Starting 04/28/15 at 1230, Until 04/28/15 at 1503 PRN Medication Order 04/26/2015 04/27/2015 04/28/2015 iopamidol (ISOVUE-300) IV solution 61% (CANCELED) 1140 (Given - Provider: Ellen Mtz MD) PRN, Starting 04/28/15 at 1140, Intra-procedure lidocaine 2 % (Uro-Jet) jelly (CANCELED) 1156 (Given - Provider: Ellen Mtz MD) PRN, Starting 04/28/15 at 1156, Intra-procedure lidocaine BUFFERED 1 % solution 0.1-1 mL (COMPLETED) 1032 (Given - Provider: Venice Lamb RN) 0.1-1 mL, Intradermal, ONCE PRN, mild pa in with VAD insertion or accessing implanted port., Starting 04/28/15 at 0945, For 1 dose, Do NOT give if patient has a history of allergy to any local anesthetic or any neo product., Pre-procedure opium-belladonna (B&O SUPPRETTES) 60-16.2 MG suppository (CANCEL ED) 1157 (Given - Provider: Ellen Mtz MD) PRN, Starting 04/28/15 at 1157, Intra-procedure sterile water (bottle) irrigation (CANCELED) 1156 (Given - Provider: Ellen Mtz MD) PRN, Intra-procedure, Starting Tue 1115 at 1156, Until Tue at 1503 sterile water irrigation (bag) (CANCELED) 1156 (Given - Provider: Ellen Mtz MD) PRN, Intra-procedure, Starting 04/28/15 at 1156, Until Tue 11 15 at 1503 documented in this encounter Care Teams Medical Staff Services Coordinator Relationship Specialty Start Date End Date Luke Cheema MD PCP - General Family Practice 11/25/11 07/26/[address] [address] documented as of this encounter
--- OUTSIDE RECORDS SUMMARY | 2022-06-03 13:02 | XMS_ITS | Encounter Summary ---
:1945 Author Organization [facility] Address [address] [place] [address] Care Team Providers Name Role Phone Luke Cheema MD Primary Care Provider Reason for Visit Rehab Therapy Cardiac Therapy (Routine) - Closed Specialty Diagnoses / Procedures Referred By Contact Refer red To Contact CARDIAC REHAB Diagnoses [place]//[place], PEGGY RCA 09/01 Requested recs/order [facility] Procedures EVALUATION [address] [place] [address] [address] [place] [address] Phone: Fax: Referral ID Status Reason Start Date Expiration Date Visits V isits Requested Authorized [facility] Closed 09/07/2015 06/25/2016 36 36 ([id number]) Encounter Details Date Type Department Care Team Description 09/28/[address] [facility] Cardiac Epi Montemayor MD [address] [place] [address] and Pulmonary 1, Rh Cardiac Rehab Rehabilitation [place] [facility] [id number] [place] [address] [address] [place] [address] Social History Tobacco Use [...] on filedocumented in this encounter Care Teams Automobile Glass Technician Relationship Specialty Start Date End Date Luke Cheema MD PCP - General Family Practice 11/25/11 07/26/[address] [address] documented as of this encounter
--- OUTSIDE RECORDS SUMMARY | 2022-06-03 13:02 | XMS_ITS | Encounter Summary ---
:1945 Author Organization [place] Address [address] [place] [address] Care Team Providers Name Role Phone Luke Cheema MD Primary Care Provider Reason for Visit Rehab Therapy Cardiac Therapy (Routine) - Closed Specialty Diagnoses / Procedures Referred By Contact Refer red To Contact CARDIAC REHAB Diagnoses Medicare//[place], PEGGY RCA 09/01 Requested recs/order [facility] Procedures EVALUATION [address] [place] [address] [address] [place] [address] Phone: Fax: Referral ID Status Reason Start Date Expiration Date Visits V isits Requested Authorized [facility] Closed 09/07/2015 06/25/2016 36 36 ([id number]) Encounter Details Date Type Department Care Team Description 09/22/2015 Hospital Encounter [facility] Cardiac Epi Montemayor MD [address] [place] [address] and Pulmonary 1, Rh Cardiac Rehab Rehabilitation [facility] [id number] [place] [address] [address] [place] [address] Social History Tobacco Use [...] Weight 75.5 kg (166 lb 6.4 oz) 09/22/2015 2:00 PM CDT Height 172.7 cm (5' 7.99) 09/22/2015 2:00 PM CDT Body Mass Index 25.31 09/22/2015 2:00 PM CDT documented in this encounter [...] encounter Progress Notes Samir Zelaya MD - 09/22/2015 2:40 PM CDT OUTPATIENT CARDIAC REHAB INDIVIDUALIZED TREATMENT PLAN 30 Day Individualized Treatment Plan Certified through this date: 10/28/15 Name: Jaxon Lawler Date of : 1945 Date of Treatment: 08/27/15 Age: [age] year old Gender: male Treatment Diagnosis: Myocardial Infarction Secondary Treatment Diagnosis: Stent Hospital Location: [facility] Discharge Date: 08/31/15 Outpatient CR Start Date: 09/08/15 Primary Physician: Dr. Tracey Brennan Surgeon: Commercial Maintenance Technician: Dr. Epi Fontaine Ejection Fraction: 35-40% THR (85% of age predicted max HR): 126.65 Risk Stratification: High Assessment Assessment: 09/08/15 PT was dignosed with inferior wall GA(STEMI) after going to ER with chest and back pain. PT started experiencing the pain while cutting wood. Emergency angiogram revealed a blockagein his RCA. Blockage was then stented. During the proceedure a distal thrombus was noted in posterolateral branch. PT placed on heparin. PT has an EF of 35-40%. PT devoloped a hematoma in his right groin after the procedure. An ultrasound demonstrated not active bleeding. PT reports that it is decreasing in size since discharge. He still feels some tighness/pulling while walking. 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 PT has access to a treadmill and elliptical/bike at home. PT is eager to startcardiac rehab so that he can start working on increasing his intensity to be able to do his normal activities. He plans to start walking on the treadmill at home in between his cardiac rehab days. 09/22/15. PT is progressing per POC. Hematoma [...] counseling. 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 Goal PT desires to get his heart [...] gradual progress and safe return to this. Pain Assessment Patient Currently in Pain: No Pain Location: Pain Rating: Pain Description: Pain Description Comment: Additional Pain Locations?: Pain Location 2: Pain Rating 2: Pain Location 3: Pain Rating 3: Pain Comments: RISK FACTORS Hypertension Hypertension: Yes Currently taking antihypertensives? Yes Target outcome goal: BP< 140/90 or <130/80 if DM or CKD Outcome Achieved Hypertension comments: 09/08/15 PTs BP is WNL. Tobacco Tobacco: Never Quit date or planned quit date: Tobacco habit: Tobacco use per day: Interventions planned: Interventions completed: Stages of change: Target outcome goal: Complete Smoking Cessation: Outcome Achieved (NA) Tobacco comments: Stress / Psychosocial Reassessment Psycho-social Assessment: Initial Patient admits to stress: Denies Current level of stress: Denies Coping skills: NA Patient Health Questionnaire-9 (PHQ-9) for Depression: 5-9 Minimal symptoms 10-14 Minor depression 15-19 Major depression, moderately severe > 20 Major depression, severe Completed PHQ-9 Score: 7 [facility] Function and Health Status Survey: [...] goal: Assessment for depression using PhQ-9 and [facility] questionnaires. Maximize coping skills and develop positive support system. Outcome Achieved Comments: 09/08/15 PT reports that stress is not an issue for him at this time. PT reports that his is easy going and doesn't let things bother him. 09/22/15. Did not address. Nutrition Reassessment Dietary assessment: Re-assessment Rate Your Plate - Heart Survey: Scores range from 24 to 72. The higher the score the healthier the eating choices. 50 Overweight / Obesity: Yes Age: 70 Weight: 75.479 kg (166 lb 6.4 oz) Height: 172.7 cm (5' 7.99) BMI (Calculated): 25.36 Goal weight: Prescribed diet: Low Fat, Low Sodium, Low Cholesterol Follows prescribed diet: 60 - 79% Stages of change to prescribed diet: Preparation Nutrition interventions planned: Attend Diet Classes, Instruct [...] day that are typically fruit and/or yogurt. Cholesterol Cholesterol: Labs Not Available (PT looking [...] Week: 7 Aerobic Exercise Days per Week: 3 Aerobic Exercise Minutes per Day: 30-40 (rehab only.) Stages of Change (Physical Activity): Maintenance Stages of Change (Aerobic Activity): Contemplation Target Outcome Goal: Aerobic Activity 30 minutes, 5 days per week = 150 minutes per week: Outcome Not Achieved Comments: 09/08/15 PT has access to a TM and elliptical/bike at home. INDIVIDUALIZED TREATMENT PLAN Monitored sessions scheduled: 18 Monitored sessions Attended: 6 Exercise Reassessment Met Level Achieved: 3.2 Resting HR: 56 bpm Exercise HR: 87 bpm Post Exercise HR: 65 bpm Resting BP: 100/64 mmHg Exercise BP: 136/78 mmHg Post Exercise BP: 106/74 mmHg Pre SpO2: While Exercising SpO2: Post SpO2: Pre BG (if applicable): Post BG (if applicable): RPE: 4 ECG Rhythm: Sinus bradycardia Ectopy: Symptoms at home: Denies symptoms Symptoms in rehab: Denies symptoms Limitations: PT had huge hematoma following PCI. still is tender. 3*2916. Reports hematoma is much better. Very little to no discomfort. No exercise modality limits. Exercise Prescription Type: Aerobic exercise, Resistance training, Flexibility training Mode: Treadmill, Airdyne, Nustep, Recumbant bike, Eliptical, Weights Frequency: 3 daysweek Duration/Time: 15-30 min Age: 70 THR (85% of age predicted max HR): 126.65 RPE recommended: Other (see comments) (OMNI 4-6) Progression: Progress PTs duration first once PT is able to complete 30 minutes of continous aerobicexercise. Then increase intensity 1/4-1/2 MET per PT rating on OMNI scale 4-6 and CV response. Progress on TM (no bikes) until groin hematoma heals completely. 09/22/15. Ok to begin using other exercisemodalities. Angina with exercise: No Resistance Training: Yes Comments: Current Home Exercise Type of Exercise: None Frequency (days per week): Duration (minutes per session): Recommended Home Exercise Prescription Type of Exercise: Walking, Treadmill Frequency (days per week): 2-3 Duration (minutes per session): 15-30 min RPE recommended: Other (see comments) (OMNI 4-6) Recommended THR: Less than 126.65 BPM Comments/Exercise plan: Patient Education Education Recommended: Anatomy and Physiology of the Heart, Medication Overview, Nutrition, Blood Pressure, Risk Factors, Exercise Principles Education Attended: Physician cosignature/electronic signature indicates approval of this ITP document. I have established, reviewed and made necessary changes to the individualized treatment plan and exercise prescription for this patient. documented in this encounter Plan of Treatment Not on filedocumented as of this encounter Visit Diagnoses Not on filedocumented in this encounter Care Teams Butcher'S Assistant Relationship Specialty Start Date End Date Luke Cheema MD PCP - General Family Practice 11/25/11 07/26/[address] [phone] documented as of this encounter
--- OUTSIDE RECORDS SUMMARY | 2022-06-03 13:02 | XMS_ITS | Encounter Summary ---
:1945 Author Organization [place] Address [address] [place] [address] Care Team Providers Name Role Phone Unavailable Primary Care Provider Unavailable Encounter Details Date Type Department Care Team Description 02/12/2007 Historic Notes INTERFACED REPORT Interface, Transcript MD sierra Social History Tobacco Use Types Packs/Day Years Used Date Smoking Tobacco: Never Assessed Sex Assigned at Date Recorded Not on file documented as of this encounter Progress Notes Interface, Candle Wrapping Machine Operator - 09/13/2010 11:09 AM CDT General Information General Information - <R> How to be addressed Taj - <R> Russian Language Instructor Needed No Patient Contact Information - <R> geriatric personal care aide to Carmen- notify: - <R> Phone 1: [phone] - Phone 2: [phone] Advance Directive Advanced Health Care Directive Information - <R> Do you have a Advance Yes Health Care Directive? - Directive Location: Copy to be obtained (see comments) - <R> Would you like to No receive information about Advanced Directives? Signatures JONATAN HERNANDEZ (RN)[Signed 12-Feb-2007 10:29] Authored: General Information, Advance Directive documented in this encounter Plan of Treatment Not on filedocumented as of this encounter Visit Diagnoses Not on filedocumented in this encounter
--- OUTSIDE RECORDS SUMMARY | 2022-06-03 13:02 | XMS_ITS | Encounter Summary ---
:1945 Author Organization [place] Address [address] [place] [address] Care Team Providers Name Role Phone Luke Cheema MD Primary Care Provider Reason for Visit Rehab Therapy Cardiac Therapy (Routine) - Closed Specialty Diagnoses / Procedures Referred By Contact Refer red To Contact CARDIAC REHAB Diagnoses Medicare//[place], PEGGY RCA 09/01 Requested recs/order [facility] Procedures EVALUATION [address] [place] [address] [address] [place] [address] Phone: Fax: Referral ID Status Reason Start Date Expiration Date Visits V isits Requested Authorized [facility] Closed 09/07/2015 06/25/2016 36 36 ([id number]) Encounter Details Date Type Department Care Team Description 10/07/2015 Hospital Encounter [facility] Cardiac Epi Montemayor MD [address] [place] [address] and Pulmonary 1, Rh Cardiac Rehab Rehabilitation [facility] [id number] [place] [address] [address] [place] [address] Social History Tobacco Use [...] on filedocumented in this encounter Care Teams Roll Icer Relationship Specialty Start Date End Date Luke Cheema MD PCP - General Family Practice 11/25/11 07/26/[address] [phone] documented as of this encounter
--- OUTSIDE RECORDS SUMMARY | 2022-06-03 13:02 | XMS_ITS | Encounter Summary ---
:1945 Author Organization [place] Address [address] [place] [address] Care Team Providers Name Role Phone Luke Cheema MD Primary Care Provider Reason for Visit Auth/Cert Specialty Diagnoses / Procedures Referred By Contact Refer red To Contact Surgery Diagnoses BLADDER TUMOR, GROSS HEMATURIA Sh Periop Services Procedures COMBINED CYSTOSCOPY, TRANSURETHRAL RESECTION (TUR) TUMOR BLADDER INSTILL CHEMOTHERAPY [address], [address] [place] [address] Phone: Referral ID Status Reason Start Date Expiration Date Visits Requ ested Visits Authorized [id number] 1 Encounter Details Date Type Department Care Team Description 04/28/2015 Hospital Encounter [facility] Ellen Mtz M alignant neoplasm Matty Barahona urinary PreOP/Phase II [place] bladder (H) (Primary [address], UROLOGY PA Dx) [address] [place] [address] [place] [id number] Social History Tobacco Use Types Packs/Day Years Used Date Smoking Tobacco: Never Alcohol Use Standard Drinks/Week Comments No 0 (1 standard drink = 0.6 oz pure alcoho l) Sex Assigned at Date Recorded Not on file documented as of this encounter Last Filed Vital Signs Vital Sign Reading Time Taken Comments Blood Pressure 121/95 04/28/2015 2:30 PM TUBING MILL SETTER Pulse 55 04/28/2015 10:54 AM TUBING MILL SETTER Temperature 36.7 ??C (98 ??F) 04/28/2015 2:30 PM TUBING MILL SETTER Respiratory Rate 8 04/28/2015 2:30 PM TUBING MILL SETTER Oxygen Saturation 98% 04/28/2015 2:30 PM TUBING MILL SETTER Inhaled Oxygen Concentration - - Weight 75.3 kg (166 lb) 04/28/2015 11:13 AM TUBING MILL SETTER Height 172.7 cm (5' 8) 04/28/2015 11:13 AM TUBING MILL SETTER Body Mass Index 25.24 04/28/2015 11:13 AM TUBING MILL SETTER documented in this encounter Discharge Instructions Discharge [...] about your procedure, call Dr. Mtz at [phone] Chemotherapy Bladder Instillation Chemotherapy bladder instillation is [...] Don???t use leg bag while in bed. NG MILL SETTER documented in this encounter Medications at Time [...] of this encounter Nursing Notes Jose D Fuentes, RENAE - 04/28/2015 12:42 PM CST 1245 - [...] in recliner and transported to Phase 2. NG MILL SETTER Venice Lamb RN - 04/28/2015 10:56 AM CST at bedside she took his watch and ring NG MILL SETTER documented in this encounter Miscellaneous Notes Op [...] in the usual sterile fashion. A 22 German Storz was visually passed urethra, which was [...] completely normal drainage also wasnormal. The 26 German continuous flow resectoscope then was visually passed [...] MD MT: [id number] Name: RAMSES LAWLER Account: [id number] : 1945 Procedure Date: 04/28/2015 Document: [id number] cc: Luke Mtz MD NG MILL SETTER Brief Op Note - Ellen Mtz MD - 04/28/2015 12:04 PM CST [facility] Brief Operative Note Pre-operative diagnosis: BLADDER TUMOR, [...] 11:52 AM Pathology Findings: Nodular tumor.normal retrogrades NG MILL SETTER documented in this encounter Plan of Treatment Pending Results Name Type Priority Associated Diagnoses Date/Ti me EKG CARDIAC - HIM SCAN EKG 04/21 12:00 AM CDT documented as of this encounter Procedures Procedure Name Priority Date/Time Associated Comments Diagnosis SURGICAL PATHOLOGY EXAM Routine 04/28/2015 11:50 Results for this AM TUBING MILL SETTER procedure are i n the results section. XR SURGERY AMERICA FLUORO Routine 04/28/2015 11:40 R esults for this LESS THAN 5 MIN W STILLS AM TUBING MILL SETTER pro cedure are in the results section. CYSTOSCOPY, WITH 04/28/2015 11:13 BLADDER TUMOR, RETROGRADE PYELOGRAM AM TUBING MILL SETTER GROSS HEMATURIA CYSTOSCOPY, WITH 04/28/2015 11:13 BLADDER TUMOR, TRANSURETHRAL RESECTION AM TUBING MILL SETTER GROSS HEMATURIA OF BLADDER TUMOR AND INSTILLATION OF CHEMOTHERAPEUTIC AGENT INTO BLADDER POTASSIUM STAT 04/28/2015 9:57 Results for this AM TUBING MILL SETTER procedure are i n the results section. LAB RESULT - HIM SCAN 04/21/2015 12:00 AM CDT EKG CARDIAC - HIM SCAN 04/21/2015 12:00 AM CDT documented in this encounter Results Surgical pathology exam (04/28/2015 11:50 AM TUBING MILL SETTER) Component Value Ref Test Analysis Performed At [facility] Range Method Time Signature Copath Report Patient Name: RAMSES LAWLER MR#: [id number] Specimen #: [id number] Collected: 04/28/2015 Received: 04/28/2015 Reported: 04/29/2015 17:01 [...] examination has been performed. CPT Codes: A: 87480-KR1 B: 11642-SA6 TESTING LAB LOCATION: [address] ??[address] COLLECTION SITE: Client: [facility] [place] Location: SHOR (S) Specimen Anatomical Collection Method Collection Time Receive d Time (Source) Location / / Volume Laterality 04/28/2015 11:50 04/28/2015 1:19 AM TUBING MILL SETTER PM TUBING MILL SETTER Ellen Mtz MD LAB - [facility] AP Performing Organization Address City/[facility]/ZIP Code Phon e Number COPATH XR Surgery AMERICA Fluoro L/T 5 Min w Stills (04/28/2015 11:40 AM TUBING MILL SETTER) Specimen (Source) Anatomical Location Collection Method / Collectio n Time Received Time / Laterality Volume Narrative RADIANT - 04/28/2015 11:42 AM TUBING MILL SETTER This exam was marked as non-reportable because it will not be read by a radiologist or a [place] non-radiologis t provider. Ellen Mtz MD IMG DIAGNOSTIC IMAGING ORDER PEREZ Performing Organization Address City/[facility]/ZIP Code Phon e Number RADIANT Potassium (04/28/2015 9:57 AM TUBING MILL SETTER) athologist Signature Potassium 4.0 3.4 - 5.3 GAINES mmol/L [facility] Specimen Anatomical Collection Method Collection Time Receive d Time (Source) Location / / Volume Laterality Blood specimen 04/28/2015 9:57 AM 015 (specimen) TUBING MILL SETTER 10:11 AM TUBING MILL SETTER Geraldine Buckner MD LAB - BLOOD ORDERABLES Performing Organization Address City/State/ZIP Code Phon e Number [facility] [address] [place] [address] [facility] [address] [place] [address], U [phone] LAB RESULT - HIM SCAN (04/21/2015 12:00 AM CDT) Specimen (Source) Anatomical Location Collection Method / Collectio n Time Received Time / Laterality Volume 04/21/2015 Narrative This result has an attachment that is no t available. 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 documented in this encounter Administered Medications Inactive Administered Medications - up to 3 most recent administrations Medication Order MAR Action Action Date Dose Rate Site lactated ringers infusion New Bag 04/28/2015 10:33 AM TUBING MILL SETTER 25 mL/hr at 25 mL/hr, Intravenous, CONTINUOUS, IF patient NOT on dialysis., Pre-procedure, Starting on Mon04/28/15 at 1000, Until Mon04/28/15 at 1216 lactated ringers infusion New Bag 04/28/2015 1:25 PM TUBING MILL SETTER 100 mL/hr at 100 mL/hr, Intravenous, CONTINUOUS, Continue until IV catheter is weaned, PACU/Phase II, Starting on Mon04/28/15 at 1230, Until Mon04/28/15 at 1503 lidocaine BUFFERED 1 % solution 0.1-1 mL Given 04/28/2015 10:32 AM TUBING MILL SETTER 0.5 mLs 0.1-1 mL, Intradermal, ONCE PRN, mild pain with VAD insertion or accessing implanted port., Starting on Mon04/28/15 at 0945, For 1 dose, Do NOT give if patient has a history of allergy to any local anesthetic or any neo product., Pre-procedure mitoMYcin (MUTAMYCIN) 40 mg in sterile New Bag 04/28/2015 11:58 AM TUBING MILL SETTER 40 mg water (preservative free) 40 mL CHEMOTHERAPY 40 mg, Bladder Instillation, ONCE, On 04/28/15 at 1200, For 1 dose, Vesicant. Use 60 ml Catheter Tip Syringe. Instill in bladder as directed. Not for IV use. documented in this encounter Active and Recently Administered Medications Due to Daylight Saving Time, this section may contain times in both CDT and TUBING MILL SETTER. Scheduled Medication Order 04/26/2015 04/27/2015 04/28/2015 gentamicin (GARAMYCIN) intermittent infusion 80 mg (COMPLETED) 1033 (Handoff - Provider: Venice Lamb, RENAE)1123 (Given - Provider: Torie Nuñez APRN CRNA) 80 mg, Intravenous, PRE-OP/PRE-PROCEDURE , Starting 04/28/15 at 0945, For 1 dose, Indications: Surgical Prophylaxis, Pre-procedure mitoMYcin (MUTAMYCIN) 40 mg in sterile w ater (preservative free) 40 mL CHEMOTHERAPY (COMPLETED) 1158 (New Bag - Provider: Maricruz Srivastava RN) 40 mg, Bladder Instillation, ONCE, On Tu e 04/28/15 at 1200, For 1 dose, Vesicant. Use 60 ml Catheter Tip Syringe. Instill in bladder as directed. Not for IV use. Continuous Medication Order 04/26/2015 04/27/2015 04/28/2015 lactated ringers infusion (CANCELED) 1033 (New Bag - Provider: Venice Lamb RN)1152 (Anesthesia Volume Adjustment - Provider: oTrie Nuñez APRN CRNA) at 25 mL/hr, Intravenous, CONTINUOUS, IF patient [...] - Provider: Ellen Mtz MD) PRN, Starting Tue 15 at 1140, Intra-procedure lidocaine 2 % (Uro-Jet) jelly (CANCELED) 1156 (Given - Provider: Ellen Mtz MD) PRN, Starting Tue 15 at 1156, Intra-procedure lidocaine BUFFERED 1 % solution 0.1-1 mL (COMPLETED) 1032 (Given - Provider: Venice Lamb, RENAE) 0.1-1 mL, Intradermal, ONCE PRN, mild pa [...] Intra-procedure, Starting 04/28/15 at 1156, Until Tue at 1503 sterile water irrigation (bag) (CANCELED) 1156 (Given - Provider: Ellen Mtz MD) PRN, Intra-procedure, Starting 04/28/15 at 1156, Until Tue 11 at 1503 documented in this encounter Care Teams Gang Supervisor Pipe Lines Relationship Specialty Start Date End Date Luke Cheema MD PCP - General Family Practice 11/25/11 07/26/[address] [phone] documented as of this encounter
--- OUTSIDE RECORDS SUMMARY | 2022-06-03 13:02 | XMS_ITS | Encounter Summary ---
:1945 Author Organization [place] Address [address] [place] [address] Care Team Providers Name Role Phone Luke Cheema MD Primary Care Provider Reason for Visit Rehab Therapy Cardiac Therapy (Routine) - Closed Specialty Diagnoses / Procedures Referred By Contact Refer red To Contact CARDIAC REHAB Diagnoses Medicare//[place], PEGGY RCA 09/01 Requested recs/order [facility] Procedures EVALUATION [address] [place] [address] [address] [place] [address] Phone: Fax: Referral ID Status Reason Start Date Expiration Date Visits V isits Requested Authorized ON LICENSE OF [facility] Closed 09/07/2015 06/25/2016 36 36 ([id number]) Encounter Details Date Type Department Care Team Description 09/18/2015 Hospital Encounter [facility] Cardiac Epi Montemayor MD [address] [place] [address] and Pulmonary 1, Rh Cardiac Rehab Rehabilitation [facility] [id number] [place] [address] [address] [place] [address] Social History Tobacco Use [...] on filedocumented in this encounter Care Teams Financial Operations Clerk Relationship Specialty Start Date End Date Luke Cheema MD PCP - General Family Practice 11/25/11 07/26/[address] [phone] documented as of this encounter
--- OUTSIDE RECORDS SUMMARY | 2022-06-03 13:02 | XMS_ITS | Encounter Summary ---
:1945 Author Organization [place] Address [address] [place] [address]. [place] [address] Care Team Providers Name Role Phone Unavailable Primary Care Provider Unavailable Encounter Details Date Type Department Care Team Description 02/13/2007 Historic Notes INTERFACED REPORT Interface, Transcript onMD Social History Tobacco Use Types Packs/Day Years Used Date Smoking Tobacco: Never Assessed Sex Assigned at Date Recorded Not on file documented as of this encounter Progress Notes Interface, Electric Motor Repairman - 09/13/2010 11:06 AM CDT Patient Status Patient Status - Physical status Stable (s/s of potential complications absent or manageable) Discharge Planning - Discharge From: [facility] - Patient Care Unit: 33 - PCU - Discharge To: Home/Alternative home - Method of discharge: Wheel Chair - Transportation: Private Discharge Information Discharge Information - Discharge information Discharge instructions reviewed with pt/family/so - Accompanied by Spouse - Mode of Travel Wheelchair Medications and Prescriptions Medications and Prescriptions - Medications and Prescriptions given to patient Prescriptions Support Services Support Services - Is home care recommended? No Special Care Needs and Instructions - Diet Instructions: Regular as tolerated. Drink plenty of fluids. - Activity Instructions: No heavy lifting or strenuous activity, straining (to have bowel movements). Take stool softener if needed. - Report temp if greater 100.4 degrees F than: - Signs or symptoms to call Fever, chills, signs of infection, the physician: inability to void or pain while voiding, or increased blood or clots in urine. See discharge instructions sheet given to you regarding TURP. - Who patient should call: Dr. Mtz - Phone number of [facility] [phone] should call: Follow Up Care - Physician name: Dr. Mtz [phone] - When to see physician: one month Sonja Sheehan (RN)[Signed 13-Feb-2007 11:19] Authored: Patient Status, Discharge Planning, Discharge Information, Medications and Prescriptions, Support Services, Special Care Needs and Instructions, Follow Up Care documented in this encounter Plan of Treatment Not on filedocumented as of this encounter Visit Diagnoses Not on filedocumented in this encounter
--- OUTSIDE RECORDS SUMMARY | 2022-06-03 13:02 | XMS_ITS | Encounter Summary ---
:1945 Author Organization [place] Address [address] [place] [address] Care Team Providers Name Role Phone Luke Cheema MD Primary Care Provider Reason for Visit Rehab Therapy Cardiac Therapy (Routine) - Closed Specialty Diagnoses / Procedures Referred By Contact Refer red To Contact CARDIAC REHAB Diagnoses [place]//[place], PEGGY RCA 09/01 Requested recs/order [facility] Procedures EVALUATION [address] [place] [address] [address] [place] [address] Phone: Fax: Referral ID Status Reason Start Date Expiration Date Visits V isits Requested Authorized [facility] Closed 09/07/2015 06/25/2016 36 36 ([id number]) Encounter Details Date Type Department Care Team Description 09/25/2015 Hospital Encounter [facility] Cardiac Epi Montemayor MD [address] [place] [address] and Pulmonary 1, Rh Cardiac Rehab Rehabilitation [place] [facility] [id number] [place] [address] [address] [place] [address] Social History Tobacco Use [...] on filedocumented in this encounter Care Teams Dispatcher Tow Truck Relationship Specialty Start Date End Date Luke Cheema MD PCP - General Family Practice 11/25/11 07/26/[address] [address] documented as of this encounter
--- OUTSIDE RECORDS SUMMARY | 2022-06-03 13:02 | XMS_ITS | Encounter Summary ---
:1945 Author Organization [place] Address [address] [place] [address] Care Team Providers Name Role Phone Luke Cheema MD Primary Care Provider Reason for Visit Rehab Therapy Cardiac Therapy (Routine) - Closed Specialty Diagnoses / Procedures Referred By Contact Refer red To Contact CARDIAC REHAB Diagnoses Medicare//[place], PEGGY RCA 09/01 Requested recs/order [facility] Procedures EVALUATION [address] [place] [address] [address] [place] [address] Phone: Fax: Referral ID Status Reason Start Date Expiration Date Visits V isits Requested Authorized [facility] Closed 09/07/2015 06/25/2016 36 36 ([id number]) Encounter Details Date Type Department Care Team Description 09/08/2015 Hospital Encounter [facility] Cardiac Epi Montemayor MD [address] [place] [address] and Pulmonary 1, Rh Cardiac Rehab Rehabilitation [place] [facility] [id number] [place] [address] [address] [place] [address] Social History Tobacco Use [...] Weight 75.5 kg (166 lb 6.4 oz) 09/08/2015 6:00 AM CDT Height 172.7 cm (5' 8) 09/08/2015 6:00 AM CDT Body Mass Index 25.3 09/08/2015 6:00 AM CDT documented in this encounter Medications [...] documented as of this encounter Progress Notes Cristela Maki EP - 09/08/2015 3:46 PM CDT OUTPATIENT CARDIAC REHAB INITIAL EVALUATION / INDIVIDUALIZED TREATMENT PLAN Certified through this date: 10/07/15 Name: Jaxon Lawler Date of : 1945 Date of Treatment: 08/27/15 Age: [age] year old Gender: male Treatment Diagnosis: Myocardial Infarction Secondary Treatment Diagnosis: Stent Hospital Location: [facility] Discharge Date: 08/31/15 Outpatient CR Start Date: 09/08/15 Primary Physician: Dr. Tracey Brennan Surgeon: Control Clerk Auditing: Dr. Epi Fontaine Ejection Fraction: 35-40% THR (85% of age predicted max HR): 126.65 Risk Stratification: High I have established, reviewed and made necessary changes to the individualized treatment plan and exercise prescription for this patient. Physician Name (Printed): Date: Time: Physician Signature: X Assessment Assessment: 09/08/15 PT was dignosed with inferior wall NM(STEMI) after going to ER with chest and back pain. PT started experiencing the pain while cutting wood. Emergency angiogram revealed a blockagein his RCA. Blockage was then stented. During the proceedure a distal thrombus was noted in posterolateral branch. PT placed on heparin. PT has an EF of 35-40%. PT devoloped a large hematoma in his right groin after the procedure. An ultrasound demonstrated not active bleeding. PT reports that it is decreasing in size since discharge. He still feels some tighness/pulling while walking. 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 PT has access to a treadmill and elliptical/bike at home. PT is eager to start cardiac rehab so that he can start working on increasing his intensity to be able to return to his normal activities. He plans to start walking on the treadmill at home in between his cardiac rehab days. The patient's history and clinical status including hemodynamics and ECG were evaluated. The patientwas assessed to be stable and appropriate to begin exercise. The patient's functional capacity and exercise prescription were determined by the completion of the 6 minute walk test. See results below. The patient was oriented to the program. Risk factor profile was completed. Goals and objectives werediscussed. CV response was WNL. No symptoms, complaints or pain were reported. Good prognosis for reaching above goals. Skilled therapy is necessary in order to monitor CV response to exercise, to provide education on risk factors and behavior change counseling needed to achieve patient's goals. Plan to progress to 30-40 minutes of exercise prior to discharge from cardiac rehab. Initial THR of 20-30 beats above RHR; Effort rating of 4-6. Initiate muscle conditioning as appropriate. Provide risk factor education and behavior change counseling. 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 Target Date 10/21/15 Date Met Progress Towards Goal Goal PT desires to get his heart strong enough to be able to work at an intensity high enough to maintain his 40 acres of land through attending cardiac rehab 3 days/week building a safe, aerobic exercise program. Target Date 10/21/15 Date Met Progress Towards Goal Referrals Recommended Referrals recommended: Comments: Follow Up / On Going Support Provider follow-up needed on the following: No follow-up needed Comments Medical History Medical history: Acute diverticulitis Past Medical History Diagnosis Date ??? Hypertension ??? History of melanoma ??? History of kidney stones ??? 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 No Have you fallen and had an injury in the past year? No Timed up and go score if applicable: Referral initiated to physical therapy: Comment: RISK FACTORS Hypertension Hypertension: Yes Currently taking [...] Achieved (NA) Tobacco comments: Stress / Psychosocial Assessment Psycho-social Assessment: Initial Patient admits to stress: Denies Current level of stress: Denies Coping skills: NA Patient Health Questionnaire-9 (PHQ-9) for Depression: 5-9 Minimal symptoms 10-14 Minor depression 15-19 Major depression, moderately severe > 20 Major depression, severe Completed PHQ-9 Score: 7 [facility] Function and Health Status Survey: A score [...] goal: Assessment for depression using PhQ-9 and [facility] COOP questionnaires. Maximize coping skills and develop positive support system. Outcome Achieved Comments: 09/08/15 PT reports that stress is not an issue for him at this time. PT reports that his is easy going and doesn't let things bother him. Nutrition Assessment Dietary assessment: Initial Assessment Rate Your Plate - Heart Survey: Scores range from 24 to 72. The higher the score the healthier the eating choices. 50 Overweight / Obesity: Yes Age: 70 Weight: 75.479 kg (166 lb 6.4 oz) Height: 172.7 cm (5' 8) BMI (Calculated): 25.35 Goal weight: Prescribed diet: Low Fat, Low [...] they are working on making these changes. Cholesterol Cholesterol: Labs Not Available (PT looking to gain access to CHOL values.) Date: Total Cholesterol: HDL: LDL: Triglycerides: Target outcome goal: Total cholesterol <150, HDL >40 M >50 F, LDL < 70, Trig < 150: Comments: Diabetes Management Diabetes Management: NA Hb A1C: Pre-Exercise Blood Sugar: Target outcome goal: Hb A1C < 7: Outcome Achieved (NA) Comments: Inactivity / Aerobic Exercise Assessment Activity assessment: Initial Inactivity: Meets Physical Activity Goal Physical activity days per week: 7 Aerobic exercise days per week: 0 Aerobic exercise minutes per day: 0 Stages of change (Physical Activity): Maintenance Stages of change (Aerobic Activity): Contemplation Target outcome goal: Aerobic Activity 30 minutes, 5 days per week = 150 minutes per week: Outcome Not Achieved Comments: 09/08/15 PT has access to a TM and elliptical/bike at home. INDIVIDUALIZED TREATMENT PLAN Monitored sessions scheduled: 18 Monitored sessions attended: 1 Exercise Assessment Initial 6 Minute Walk Distance: 1451 ft 6 Minute Walk Predicted (Male): 1669.36 6 Minute Walk Predicted (Female): 1468.95 Met Level Achieved: 3.1 Resting HR: 71 bpm Exercise HR: 103 bpm Post Exercise HR: 69 bpm Resting BP: 108/70 mmHg Exercise BP: 130/68 mmHg Post Exercise BP: 100/68 mmHg Pre SpO2: While Exercising SpO2: Post SpO2: Pre BG: Post BG: RPE: 5 ECG Rhythm: Sinus rhythm Ectopy: Symptoms at home: Fatigue Symptoms in rehab: (slight tightness from groin hematoma with walking) Limitations: PT had huge hematoma following PCI. still is tender. Exercise Prescription Type: Aerobic exercise, Resistance training, Flexibility training Mode: Treadmill, Airdyne, Nustep, Recumbant bike, Eliptical, Weights Frequency: 3 daysweek Duration/Time: 15-30 min Age: 70 THR (85% of age predicted max HR): 126.65 RPE recommended: Other (see comments) (OMNI 4-6) Progression: Progress duration over the next 2-4 sessions to 30 minutes of continous aerobic exercise. Increase intensity 1/4-1/2 MET per week per PT rating on OMNI scale 4-6 and CV response. Limit to TM (no bikes) until groin hematoma heals completely. Angina with exercise: No Resistance Training: Yes Comments: Current Home Exercise Type of Exercise: None Frequency (days per week): Duration (minutes per session): Recommended Home Exercise Prescription Type of Exercise: Walking, Treadmill Frequency (days per week): 2-3 Duration (minutes per session): 15-30 min RPE recommended: Other (see comments) (OMNI 4-6) Recommended THR: Less than 126.65 BPM Comments/Exercise Plan: Learning Assessment Learner: Patient Primary Language: Chilean Preferred Learning Style: Listening, Reading, Demonstration, Pictures/Video Barriers to Learning: Visual (wears contacts and reading glasses) Patient Education Education Recommended: Anatomy and Physiology of the Heart, Medication Overview, Nutrition, Blood Pressure, Risk Factors, Exercise Principles documented in this encounter Plan of Treatment Not on filedocumented as of this encounter Visit Diagnoses Not on filedocumented in this encounter Care Teams Offshore Wind Turbine Technician Relationship Specialty Start Date End Date Luke Cheema MD PCP - General Family Practice 11/25/11 07/26/[address] [phone] documented as of this encounter
--- OUTSIDE RECORDS SUMMARY | 2022-06-03 13:02 | XMS_ITS | Encounter Summary ---
:1945 Author Organization [place] Address [address] [place] [address] Care Team Providers Name Role Phone Unavailable Primary Care Provider Unavailable Encounter Details Date Type Department Care Team Description 02/12/2007 Operative Report Golden Mtz MD (Pastrycook'S Assistant) [facility] [address] [place], [place] [id number] (Wo rk) Social History Tobacco Use Types Packs/Day Years Used Date Smoking Tobacco: Never Assessed Sex Assigned at Date Recorded Not on file documented as of this encounter Progress Notes Golden Mtz - 05/01/2007 10:24 AM GENERAL REPAIR MECHANIC FINAL 1st Tip Cementer: 2nd Tip Cementer: PREOPERATIVE DIAGNOSIS: 1. History of hematuria. 2. Multiple bladder stones (8) 3. Benign prostatic hypertrophy, prominent median lobe. POSTOPERATIVE DIAGNOSIS: 1. History of hematuria. 2. Multiple bladder stones (8) 3. Benign prostatic hypertrophy, prominent median lobe. PROCEDURE: 1. KTP laser assisted transurethral resection of the prostate. 2. Cystolitholapaxy with holmium laser and removal of all bladder stones . ANESTHESIA: Spinal. ESTIMATED BLOOD LOSS: Less than 25 cc. SUMMARY OF FINDINGS: 1. Multiple very hard bladder stones (8). 2. Small bladder diverticulum. 3. BPH , prominent median lobe. BRIEF HISTORY AND PHYSICAL: Ramses Lott is a 62-year-old male referred to Urology for an episodeof gross, total, painless hematuria. The patient did undergo a CT scan which demonstrated evidence of normal kidneys. There was evidence of multiple bladder stones noted and a bladder diverticulum. He was referred to urology and underwent diagnostic cystoscopy and was found to have a prostate which was obstructing secondary to a rather prominent median lobe and a markedly trabeculated bladder and thestones were confirmed. He received information concerning alternatives for treatment and has elected to undergo surgery. The procedure was thoroughly explained to the patient including possible complications and realistic expectations. After careful evaluation he has elected to proceed. DESCRIPTION OF PROCEDURE: Proper permits were obtained and signed. After adequate spinal anesthesia, he was placed in dorsal lithotomy position. The skin was prepped and draped in the usual sterile fashion. A 22 Sinhala Storz continuous flow laser scope was visually passed into the bladder. The patient underwent KTP assisted laser TURP starting with the median lobe which was carefully vaporized to the level of the verumontanum. The patient then underwent vaporization of the lateral lobes which were not very large, first the left and then the right, respectively. There was no evidence of active bleeding. The patient underwent holmium laser fragmentation of the multiple bladder stones. These were quite hard and required some time to fragment. The laser scope then was removed. The 26 Sinhala continuous flow resectoscope then was visually passed into the bladder which enabled us to aspirate all the stone fragments. There was no evidence of active bleeding. He did undergo excision of some small residual tissue at the bladder neck. Estimated loss 25 cc. Nobles catheter irrigated clear and he was taken to recovery room in stable condition. Electronically signed on 05/01/2007 10:23 by GOLDEN MTZ MD MT: no Name: RAMSES LOTT Account: [id number] : 1945 Procedure Date: 02/12/2007 Document: [id number] cc: Luke Cheema MD RAL REPAIR MECHANIC documented in this encounter Plan of Treatment Not on filedocumented as of this encounter Visit Diagnoses Not on filedocumented in this encounter
--- OUTSIDE RECORDS SUMMARY | 2022-06-03 13:02 | XMS_ITS | Encounter Summary ---
:1945 Author Organization [place] Address [address] [place] [address] Care Team Providers Name Role Phone Unavailable Primary Care Provider Unavailable Encounter Details Date Type Department Care Team Description 11/07/2005 GI Procedure [facility] Samir Thomas MD None Endoscopy [facility] RETIRED XXX [address], [facility] [place] [address] [place] [address] [phone] Social History Tobacco Use Types Packs/Day Years Used Date Smoking Tobacco: Never Assessed Sex Assigned at Date Recorded Not on file documented as of this encounter Plan of Treatment Not on filedocumented as of this encounter Procedures Procedure Name Priority Date/Time Associated Diagnosis Comme nts COLONOSCOPY Routine 11/07/2005 8:30 AM Results f or this CDT procedure are i n the results section . documented in this encounter Results COLONOSCOPY (11/07/2005 8:30 AM CDT) [facility] Method Time Signature COLONOSCOPY Endoscopy RADIOLOGY RESULTS Patient Name: Jaxon Lawler ?Gender: M ? Procedure Date: 11/07/2005 8: 30 AM ? Date of : 1945 ?Age: 60 ? Admit Type: Outpatient ? Attending MD: Samir Thomas ? Procedure: ?Colonoscopy Indications: ?Avg risk screening for malignant neoplasm in the colon Providers: ?Samir Thomas MD Referring MD: ?? Luke Cheema MD Medicines: ?Fentanyl 100 mcg IV, Midazola m 2 mg IV, Atropine 0.6 mg IV Complications: ??No immediate complications Procedure: ?- A History and Physical has been perfo rmed, and patient ?medi cation allergies have been reviewed. The patient The ?risk s and benefits of the procedure and the sedation options ?and risks were discussed with the patient. All questions were ?answered and informed consent was obtained. Patient ?iden tification and proposed procedure were verified prior to ?the procedure by the physician in the procedure room. Mental ?Stat us Examination: normal. Respiratory Examination: clear to ?ausc ultation. CV Examination: normal. ASA Grade Assessment: ?P1 A normal healthy patient. After reviewing the risks and ?bene fits, the patient was deemed in satisfactory condition to ?undergo the procedure. T he anesthesia plan was to use ?moderate sedation / analgesia (con scious sedation). ?Imme diately prior to administration of medications, the ?tania ent was re-assessed for adequacy to receive sedatives. ?The heart rate, respiratory rate, oxygen saturations, blood ?pres sure, adequacy of pulmonary ventilation, and response to ?care were monitored throughout the procedure. The physical ?stat us of the patient was re-assessed after the procedure. ?Afte r obtaining informed consent, the colonoscope was passed ?unde r direct vision. Throughout the procedure, the patient's ?bloo d pressure, pulse, and oxygen saturations were monitored ?cont inuously. The [id number] was introduced through ?the anus and advanced to the cecum, identified by appendiceal ?orif ice & IC valve. The colonoscopy was accomplished without ?diff iculty. The patient tolerated the procedure well. The ?quality of the prep was excellent. ? Findings: ? The digital rectal exam was normal. Internal, non ble eding, mild ? hemorrhoids were found. The rectum, sigmoid colon, descending colon, ? splenic flexure, transverse colon, hepatic flexure, ascending colon, ? cecum and ileocecal valve were no rmal. The retroflexed view of the anal ? verge was normal and showed no anal or rectal abnorma lities. ? Impression: ? - Internal, non bleeding, mild hemorrhoids were found. ?- The rectum, si gmoid colon, descending colon, splenic ?flex ure, transverse colon, hepatic flexure, ascending colon, ?cecum and ileocecal valve are normal . Recommendation: - Discharge patient to home (ambulatory). ?- Co llect hemoccults on three spontaneously passed stools ?annually. ?- Flexible Sigmoidoscopy in 3 years. ?- Re turn to primary care provider soon regarding hematuria. ? CPT Code(s): ?57741, Colonoscopy, flexible, proxim al to splenic flexure; ?diag nostic, with or without collection of specimen(s) by ?brus mauricio or washing, with or without colon decompression ?(separate procedure) ICD Code(s): ?455.0, Internal Hemorrhoids Wi thout Mention of Complication ?V76. 51, Special Screening For Malignant Neoplasms, Colon The codes documented in this report are prelimin tamela and upon jet aircraft servicer review may be revised to meet current compliance requirements. Alf Thomas M.D Samir Thomas MD Signed Date: 11/07/2005 8:59 AM Number of Addenda: 0 I was physically present for the entire viewing portion of t he exam. Note generated on 11/07/2005 8:28 AM COLONOSCOPY RADIOLOGY RESULTS Specimen (Source) Anatomical Collection Method Collection Time Re ceived Time Location / / Volume Laterality 11/07/2005 8:30 AM CDT Samir Thomas MD PROCEDURES Performing Organization Address City/State/ZIP Code Phon e Number RADIOLOGY RESULTS documented in this encounter Visit Diagnoses Not on filedocumented in this encounter
--- OUTSIDE RECORDS SUMMARY | 2022-06-03 13:05 | XMS_ITS ---
:1945 Author Care Team Providers Name Role Phone [facility] Primary Care Provider [phone] Allergies Code Code System Name Reaction Severity Status Onset NKDA ? Medications Name Status Start Date Stop Date ? ? amlodipine 2.5 mg tablet Active ? Not michael ilable Asprin Ec Low Dose 81 mg tablet,delayed release Active ? Not available Take 1 tablet every day by oral route. atorvastatin 40 mg tablet Active ? Not av ailable cephalexin 500 mg capsule Completed ? 2021 TAKE 1 CAPSULE BY MOUTH TWICE DAILY FOR 7 DAYS ciprofloxacin 500 mg tablet Active ? Not available TAKE 1 TABLET BY MOUTH EVERY 12 HOURS for 7 days codeine 10 mg-guaifenesin 100 mg/5 mL oral liquid Completed ? 12/20/2021 Take 5-10 mls by mouth every 6 hours losartan 50 mg tablet Active ? Not availa ble metoprolol succinate ER 50 mg tablet,extended release 24 Active ? Not available hr Problems Name Status Onset Date Source ? 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 06/26/2020 Colonoscopy Information not avai lable ? Transurethral Resection of Neoplasm of B ladder Information not available ? Prostate Surgery Information not avai lable Notes: LASER TURP: 2009 ? Heart Surgery Information not avai lable Notes: STENT PLACEMENT: 08-28-15 Results Lab Results Date Name Specimen Result Interpretation Description Value Range Status Address ? 12/20/2021 Culture, UR ABNORMAL Final Report microbiology ? Final [place] [facility] [place] [facility]: [address] [facility] [address], [place] 12/20/2021 Urinalysis ? Nitrates-Sta positive ? ? , Dipstick tus ? ? ? Blood-Status Trace ? Leuko-Status Small ? ? 12/20/2021 Urinalysis ? No ? ? ? , Dipstick observation recorded. 12/24/2020 Urinalysis ? No ? ? ? , Dipstick observation recorded. 12/09/2020 Culture, UR ABNORMAL Final Report microbiology ? Final [place] [facility] results [facility] [place] [facility]: [address] [facility] [address], [place] 12/09/2020 Urinalysis ? No ? ? ? , Dipstick observation recorded. ? Urinalysis ? Color-Status Yellow ? ? , Dipstick ? ? ? Clarity-Stat Clear ? ? us ? ? ? Blood-Status Trace ? Leuko-Status Trace ? ? ? Urinalysis ? Color-Status Dark Yellow ? ? , Dipstick ? ? ? Clarity-Stat Slightly ? ? us Cloudy ? ? ? Glucose-Stat Negative ? ? us ? ? ? Bilirubin-St Negative ? ? atus ? ? ? Ketones-Stat Negative ? ? us ? ? ? Sp 1.020 ? ? [place]-Statu s ? ? ? pH-Status 7.0 ? Urobilinogen 0.2 ? ? -Status ? ? ? Nitrates-Sta positive ? ? tus ? ? ? Blood-Status Negative ? Leuko-Status Trace ? Specimen Voided ? ? Type Past Encounters Encounter Date Diagnosis Provider 12/20/2021 Malignant Tumor of Urinary Bladder Andrew Mtz MD: [address], [place] [address], Ph. [phone] 12/25/2020 Malignant Tumor of Urinary Bladder; Melissa Mtz MD: [address], [place] [address], Ph. [phone] 12/09/2020 Malignant Tumor of Urinary Bladder; Melissa Mtz MD: [address], [place] [address], Ph. Social History Tobacco Smoking Status Never Smoker Vaccine List None recorded. Plan of Care Reminders Provider Appointments None recorded. ? ? Lab None recorded. ? ? Referral None recorded. ? ? Procedures None recorded. ? ? Surgeries None recorded. ? ? Imaging None recorded. ? ? Vitals 12/20/2021 11:10AM ESTABLISHED 10 Height Weight BMI 5 ft 7 in 170 lbs 26.6 kg/m2 12/25/2020 08:40AM ESTABLISHED 10 Height Weight BMI 5 ft 8 in 172 lbs 26.2 kg/m2 12/09/2020 03:20PM ESTABLISHED 10 Height Weight BMI 5 ft 8 in 172 lbs 26.2 kg/m2
[2022-06-03 13:41] LABS: Creatinine* 0.9 mg/dL (0.5-1.5); Estimated Glomerular Filt Rate 87 ml/min
--- NOTE | 2022-06-03 14:00 | CRLHL7_ITS ---
For Patients: As a result of the Century Cures Act, medical imaging exams and procedure reports are released immediately into your electronic medical record. You may view this report before your referring provider. If you have questions, please contact your health care provider. Indication: Right inguinal hernia, left-sided pain Technique: Postcontrast CT abdomen and pelvis. Oral water. 83 cc Isovue 370 intravenous contrast. Please note that all CT scans at this facility use dose modulation, iterative reconstruction, and/or weight-based dosing when appropriate to reduce radiation dose to as low as reasonably achievable. Comparison: 04/10/2015 Findings: Mild linear subsegmental atelectasis is present within both lung bases. There is a subcentimeter simple cyst within the left hepatic lobe. No suspicious intrahepatic mass. The spleen is normal. Stable nodularity of the left adrenal gland. Normal right adrenal gland. Small simple renal cortical cysts left kidney measuring less than 1 cm. Partially exophytic simple cyst arising from the posterior right kidney measuring 2 cm. No hydronephrosis. Vascular calcifications. Pancreas normal. No adenopathy. The bladder is similar with a right posterior lateral bladder diverticulum. The previously visualized density associated with the dome of the bladder is no longer present. Prostate calcifications. No bowel obstruction or free air. No free fluid. Normal appendix. Degenerative disc disease and facet degeneration lumbar spine. No fracture. Benign bone islands are present. Impression: No evidence of abdominal wall hernia. No inflammatory changes. Cause for the left-sided pain may be due to constipation. Please note that all CT scans at this facility use dose modulation, iterative reconstruction, and/or weight-based dosing when appropriate to reduce radiation dose to as low as reasonably achievable. Dictated by Jaxon Dobbins MD @ 06/04/2022 9:03:29 AM (Electronically Signed)
== END 2022-06-03 12:58 | disposition home or self-care (01) ==
LOC: CT 12:59
PROVIDERS: PCP Family Medicine; Visit Provider Family Medicine
DX: K40.90 Unilateral inguinal hernia, without obstruction or gangrene, not specified as recurrent (principal)
CPT/HCPCS: 36415; 74177; 82565; Q9967

== ENCOUNTER 2023-02-08 09:38 | Outpatient (CLI) | payer OTHER, SELFPAY | END 2023-02-08 09:39 | disposition home or self-care (01) | LOC: LKVREF 09:39 | PROVIDERS: PCP Family Medicine; Visit Provider Family Medicine | DX: Z00.00 Encounter for general adult medical examination without abnormal findings (principal); E78.5 Hyperlipidemia, unspecified; I10 Essential (primary) hypertension; Z12.5 Encounter for screening for malignant neoplasm of prostate | CPT/HCPCS: 80053; 80061; 84153 ==

== ENCOUNTER 2024-04-04 08:38 | Outpatient (CLI) | payer OTHER, SELFPAY ==
--- OUTSIDE RECORDS SUMMARY | 2024-04-05 11:42 | XMS_ITS | Clinical Summary ---
Author Organization [employer] Address [place], [place] [address] Care Team Providers Care Cosmetology Instructor Name Role Phone Shahid Galindo MD Primary Care Provider [phone] Allergies No known active allergies Medications Medication Sig Dispensed Refills Start Date End Date Status nitroglycerin (NITROSTAT) 0.4 mg sublingual tabletIndications:Ac hoh [place] inferior lateral first episode care (HC) Place 1 tablet under the tongue every 5 minutes if needed for Chest Pain (first choice for chest pain). 25 tablet 08/31/2015 Active atorvastatin (LIPITOR) 40 mg tabletIndications:Ac hoh [place] inferior lateral first episode care (HC) Take 1 tablet by mouth at bedtime. 90 tablet 4 11/10/2015 Active FLOVENT HFA 110 mcg/actuation inhaler 10/04/2017 Active metoprolol succinate (TOPROL XL) 50 mg sustained-release tabletIndications:Ac hoh [place] inferior lateral first episode care (HC) Take 0.5 tablets by mouth once daily. 10/02/2018 Active losartan (COZAAR) 50 mg tabletIndications:CA D in [place] artery,HTN (hypertension) Take 1 tablet by mouth 2 times daily. 180 tablet 3 10/31/2018 Active amLODIPine (NORVASC) 2.5 mg tablet 2.5 mg two times daily. Active clopidogreL (PLAVIX) 75 mg tabletIndications:Co ronary artery disease due to calcified coronary lesion TAKE 1 TABLET DAILY 90 Tablet 3 11/22/2023 Active Active Problems Problem Noted Date Diagnosed Date ASCVD (arteriosclerotic cardiovascular disease) 08/28/2015 S/P PEGGY to RCA 08/28/15 08/28/2015 Ischemic cardiomyopathy, LVEF 35-40% 08/28/15 03/0 09/2015 Acute [place] inferior lateral first episode care 08/2015 Overview (08/28/2015): Probable RV involvement HTN (hypertension) 08/27/2015 Urolithiasis 08/27/2015 Encounters Date Type Department Care Team Description 02/28/2024 Telephone [facility] [address] [place] [address] Steffen Todd MD Results (echocardiogram ) 02/16/2024 11:00 AM CDT Ancillary Procedure [facility] [address] [place] [address] 02/16/2024 Travel 01/09/2024 3:00 PM CDT Office Visit [facility] [address] [place] [address] Steffen Todd MD Follow Up (Annual follow up Coronary artery disease ) 01/09/2024 Travel from Last 3 Months Social History Tobacco Use Types Packs/Day Years Used Date Smoking Tobacco: Never Smokeless Tobacco: Never Tobacco Cessation:Counseling Given: Yes Alcohol Use Standard Drinks/Week Comments Yes 0 (1 standard drink = 0.6 oz pur e alcohol) Social Connections Answer Date Recorded Frequency of Communication with Friends and Fami ly Not on file 06/26/2021 Financial Resource Strain Answer Date R ecorded Difficulty of Paying Living Expenses Not on file 06/26/2021 Difficulty of Paying Living Expenses Not on file 06/26/2021 Sex and Gender Information Value Date Recorded Sex Assigned at Not on file Gender Identity Not on file Sexual Orientation Not on file Obstetrics History Last Filed Vital Signs Vital Sign Reading Time Taken Comments Blood Pressure 132/76 01/09/2024 2:59 PM CDT Pulse 53 01/09/2024 2:59 PM CDT Temperature 36.8 ??C (98.2 ??F) 10/02/2018 1 1:38 AM CDT Respiratory Rate 20 10/02/2018 11:3 8 AM CDT Oxygen Saturation 96% 01/09/2024 2:59 PM CDT Inhaled Oxygen Concentration - - Weight 79.2 kg (174 lb 11.2 oz) 01/09/2024 2:59 PM CDT Height 172.7 cm (5' 7.99) 09/09/2015 1 2:32 PM CDT Body Mass Index 26.57 09/09/2015 12:32 PM CDT Plan of Treatment Health Maintenance Due Date Last Done Comments Tdap 01/14/1955 Depression screening for age 12+ 1956 Tetanus booster 1964 Zoster (shingles) series for age 50+ (1 of 2) 01/14/1994 Medicare Wellness for age 65+ 01/14/2009 Pneumococcal series for age 65+ (1 of 1 - PCV) 01/14/2009 BMI (ht and wt on same day) for age 18+ 09/08/2016 09/09/2015 RSV vaccine for adults or (1 - 1-dose 75+ series) 01/14/2019 COVID-19 vaccine series ( season) 2024 01/06/2022, 04/09/2021, 08/25/2020, Additional history exists Influenza for age 65+ 02/25/2024 Procedures Procedure Name Priority Date/Time Associated Diagnosis Comments ECHO TTE COMPLETE WO CONTRAST Routine 02/16/2024 11:48 AM CDT Ischemic cardiomyopathy, LVEF 35-40% 08/28/15 from Last 3 Months Results * ECHO TTE COMPLETE WO CONTRAST (02/16/2024 11:48 AM CDT) AORTIC VALVE MEAN PG 5 mmHg EJECTION FRACTION 47 % PEAK TR VELOCITY 1.8 m/s LVEDD 5.8 cm EJECTION FRACTION 45 - 50% Anatomical Region Laterality Modality Ultrasound 02/16/2024 11:0 7 AM CDT Narrative 02/16/2024 12:12 PM CDT ECHOCARDIOGRAM RAMSES GILMANVANESA ? Accession#: ?? [id number] : ?1945 79 years Study Date: ?? 02/16/2024 11:07:35 AM Gender: M ?BP: ? 132/76 mmHg Height: 170.00 cm ?BSA: ?1.91 m? ? ? Weight: 79.00 kg ? Tech: ? MSR ? Referring MD: STEFFEN TODD Site: ? [facility] Reading Location: Mobile OP Patient Location: Outpatient. Procedure: 2D, Color Doppler and Spectral Doppler. Indication for study: Ischemic cardiomyopathy, LVEF 35-40% 08/28/15 Cardiac Rhythm: Regular.Study quality: Fair. Final Impressions: 1. Normal LV size, normal wall thickness, EF of 45 - 50%. 2. Basal inferior and basal inferoseptal segments are akinetic. 3. Mild RV enlargement, normal systolic function. 4. No significant valve disease detected. 5. The inferior vena cava is normal sized, respiratory size variation greater than 50%. Comparison Compared to prior exam of 01/04/23, there has been no significant change. Chamber Sizes and Function Normal left ventricular size, normal wall thickness, mildly reduced global systolic function with an estimated EF of 45 - 50%. Left atrial size is normal. Right ventricular cavity size is mildly enlarged, global systolic RV function is normal. RV wall thickness is normal. The right atrium is normal. The pulmonary artery is of normal size and origin. The sinus of Valsalva is normal sized. The ascending aorta is normal sized. Valves, RV Pressures and Diastolic Function The aortic valve is normal in structure and trileaflet, no stenosis and trivial regurgitation. The mitral valve is normal in structure, no mitral regurgitation. Normal diastolic function. The tricuspid valve is normal in structure. Tricuspid regurgitation is trace regurgitation. The tricuspid regurgitant velocity is 1.8 m/s, the estimated right ventricular systolic pressure is 13 mmHg plus right atrial pressure. The pulmonic valve is not well visualized. Mild pulmonary regurgitation. Masses, Effusion, Shunts There is no pericardial effusion. The inferior vena cava is normal sized, respiratory size variation greater than 50%. No left to right shunting was detected by limited color flow Doppler interrogation of the interatrial septum. MEASUREMENTS AND CALCULATIONS 2-D Measurements and LV Function: LVID (d) 5.8 cm LV FS% (2D) ?? 24 % LVID (s) 4.4 cm LVOT diameter 2.2 cm IVS (d) ??0.8 cm HR ?46 bpm LVPW (d) 0.8 cm LA Vol index ??25 ml/m2 Ao Sinus 3.3 cm RV Max 4C (d) 4.3 cm Asc Ao ?? 3.5 cm Diastology: Mitral ?Tissue Doppler E Peak 0.5 m/s ??e', Septum ? 0.06 m/s A Peak 0.6 m/s ??e', Lateral ?0.05 m/s E/A ?0.8 ?E/e' Average ?? 8.96 DT ? 234 msec Aortic Valve: Vmax ? 1.4 m/s ??DESTINEY (V) ?? 2.09 cm? ? ? VTI ?0.32 m ?? DESTINEY (I) ?? 2.17 cm? ? ? LVOT V max 0.8 m/s ??Max PG ?8 mmHg LVOT VTI ?? 0.18 m ?? Mean PG ?? 5 mmHg SV ? 68 ml ?Dim Index 0.58 SV index ?? 36 ml/m? ? ? CO ?3.1 l/min ?CI ?1.6 l/min/m? ? ? Mitral Valve: MVA ?3.2 cm? ? ? MV P 1/2 68 msec Tricuspid Valve and estimated PA pressures: TR Vmax 1.8 m/s TAPSE 3.0 cm TR maxG 13 mmHg Pulmonic Valve: PIEDV 1.0 m/s . This study was interpreted by an PSYCHIATRIC accredited facility. ??Final ?? Procedure Note Samir Duran MD - 02/16/2024 ECHOCARDIOGRAM RAMSES LOTT : 1945 79 years Study Date: 02/16/2024 11:07:35 AM Gender: M BP: 132/76 mmHg Height: 170.00 cm BSA: 1.91 m? ? ? Weight: 79.00 kg Tech: MSR Referring MD: STEFFEN TILLMAN FRESNODerek Site: [facility] Reading Location: Mobile OP Patient Location: Outpatient. Procedure: 2D, Color Doppler and Spectral Doppler. Indication for study: Ischemic cardiomyopathy, LVEF 35-40% 08/28/15 Cardiac Rhythm: Regular.Study quality: Fair. Final Impressions: 1. Normal LV size, normal wall thickness, EF of 45 - 50%. 2. Basal inferior and basal inferoseptal segments are akinetic. 3. Mild RV enlargement, normal systolic function. 4. No significant valve disease detected. 5. The inferior vena cava is normal sized, respiratory size variationgreater than 50%. Comparison Compared to prior exam of 01/04/23, there has been no significant change. Chamber Sizes and Function Normal left ventricular size, normal wall thickness, mildly reduced globalsystolic function with an estimated EF of 45 - 50%. Left atrial size isnormal. Right ventricular cavity size is mildly enlarged, global systolicRV function is normal. RV wall thickness is normal. The right atrium isnormal. The pulmonary artery is of normal size and origin. The sinus ofValsalva is normal sized. The ascending aorta is normal sized. Valves, RV Pressures and Diastolic Function The aortic valve is normal in structure and trileaflet, no stenosis andtrivial regurgitation. The mitral valve is normal in structure, no mitralregurgitation. Normal diastolic function. The tricuspid valve is normal instructure. Tricuspid regurgitation is trace regurgitation. The tricuspidregurgitant velocity is 1.8 m/s, the estimated right ventricular systolicpressure is 13 mmHg plus right atrial pressure. The pulmonic valve is notwell visualized. Mild pulmonary regurgitation. Masses, Effusion, Shunts There is no pericardial effusion. The inferior vena cava is normal sized,respiratory size variation greater than 50%. No left to right shunting wasdetected by limited color flow Doppler interrogation of the interatrialseptum. MEASUREMENTS AND CALCULATIONS 2-D Measurements and LV Function: LVID (d) 5.8 cm LV FS% (2D) 24 % LVID (s) 4.4 cm LVOT diameter 2.2 cm IVS (d) 0.8 cm HR 46 bpm LVPW (d) 0.8 cm LA Vol index 25 ml/m2 Ao Sinus 3.3 cm RV Max 4C (d) 4.3 cm Asc Ao 3.5 cm Diastology: Mitral Tissue Doppler E Peak 0.5 m/s e', Septum 0.06 m/s A Peak 0.6 m/s e', Lateral 0.05 m/s E/A 0.8 E/e' Average 8.96 DT 234 msec Aortic Valve: Vmax 1.4 m/s DESTINEY (V) 2.09 cm? ? ? VTI 0.32 m DESTINEY (I) 2.17 cm? ? ? LVOT V max 0.8 m/s Max PG 8 mmHg LVOT VTI 0.18 m Mean PG 5 mmHg SV 68 ml Dim Index 0.58 SV index 36 ml/m? ? ? CO 3.1 l/min CI 1.6 l/min/m? ? ? Mitral Valve: MVA 3.2 cm? ? ? MV P 1/2 68 msec Tricuspid Valve and estimated PA pressures: TR Vmax 1.8 m/s TAPSE 3.0 cm TR maxG 13 mmHg Pulmonic Valve: PIEDV 1.0 m/s . This study was interpreted by an PSYCHIATRIC accredited facility. Final Steffen Todd MD ECHO ORD from Last 3 Months Advance Directives * Full Code (Latest Code Status on File) Date Activated Date Inactivated Comments 08/27/2015 7:22 PM 08/31/2015 3:13 PM Care Teams Cosmetology Instructor Relationship Specialty Start Date End Date Shahid Galindo MD [address] [place] [address] PCP - General Family Practice 10/02/18
--- OUTSIDE RECORDS SUMMARY | 2024-04-05 11:42 | XMS_ITS | Encounter Summary ---
Author Organization [facility] Address [address] [place] [address] Care Team Providers Care Faculty Physician Name Role Phone Shahid Galindo MD Primary Care Provider [phone] Encounter Details Date Type Department Care Team (Late st Contact Info) Description 04/07/2021 Documentation Only INTERFACED REPORT Unknown, Provider Social History Tobacco Use Types Packs/Day Years Used Date Smoking Tobacco: Never Alcohol Use Standard Drinks/Week Comments No 0 (1 standard drink = 0.6 oz pur e alcohol) Sex and Gender Information Value Date Recorded Sex Assigned at Not on file Gender Identity Not on file Sexual Orientation Not on file COVID-19 Exposure Response Date Recorded In the last month, have you been in contact with someone who was confirmed or suspected to have Coronavirus / COVID-19? No / Unsure 04/07/2021 5:08 AM CDT documented as of this encounter Plan of Treatment Not on file documented as of this encounter Visit Diagnoses Not on filedocumented in this encounter Care Teams Faculty Physician Relationship Specialty Start Date End Date Shahid Galindo MD [facility] [address] [place] [address] PCP - General Family Medicine 04/07/21 documented as of this encounter
--- OUTSIDE RECORDS SUMMARY | 2024-04-05 11:42 | XMS_ITS | Referral Summary ---
Author Organization [facility] Address [address] [place] [id number] Care Team Providers Care Construction Checker Name Role Phone Shahid Galindo MD Primary Care Provider Allergies No known active allergies Medications Medication Sig Dispensed Refills Start Date End Date Status LISINOPRIL PO Take 10 mg by mouth daily Active Cyanocobalamin (VITAMIN B 12 PO) Take 1,000 mcg by mouth daily Active Pyridoxine HCl (VITAMIN B6 PO) Take 25 mg by mouth daily Active NONFORMULARY Take 400 mg by mouth daily VITAMIN B-11 Active HYDROcodone-acetamin ophen (NORCO) 5-325 MG per tabletIndications: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) Take 1-2 tablets by mouth every 4 hours as needed for moderate to severe pain (Moderate to Severe Pain) 20 tablet 0 04/28/2015 Active ciprofloxacin (CIPRO) 500 MG tabletIndications:Ma 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) Take 1 tablet (500 mg) by mouth 2 times daily 6 tablet 0 04/28/2015 Active Social History Tobacco Use Types Packs/Day Years Used Date Smoking Tobacco: Never Alcohol Use Standard Drinks/Week Comments No 0 (1 standard drink = 0.6 oz pur e alcohol) Adolescent Education Answer Date Record ed Getting School Help Needed Not on file 04/02 Sex and Gender Information Value Date Recorded Sex Assigned at Not on file Gender Identity Not on file Sexual Orientation Not on file Last Filed Vital Signs Vital Sign Reading Time Taken Comments Blood Pressure 147/87 04/07/2021 7:50 AM CDT Pulse 70 04/07/2021 7:50 AM CDT Temperature 36.4 ??C (97.6 ??F) 04/07/2021 5:16 AM CD T Respiratory Rate 18 04/07/2021 5:16 AM CDT Oxygen Saturation 98% 04/07/2021 7:50 AM CDT Inhaled Oxygen Concentration - - Weight 77.1 kg (170 lb) 04/07/2021 5:16 AM CDT Height 170.2 cm (5' 7) 04/07/2021 5:16 AM CDT Body Mass Index 26.63 04/07/2021 5:16 AM CDT Plan of Treatment Not on file Procedures Procedure Name Priority Date/Time Associated Diagnosis Comments COLONOSCOPY Routine 12/05/2011 11:25 AM CDT from Last 3 Months or Most Recently Relevant to Health Maintenance Results * COLONOSCOPY (12/05/2011 11:25 AM CDT) [facility] COLONOSCOPY [facility] Patient Name: Jaxon Lawler ?Procedure Date: 12/05/2011 11:25:41 AM ? Date of : 1945 ?Admit Type: Outpatient ? Age: 66 ? Gender: Male ? Attending MD: Samir Rivera MD ? Procedure: ?Colonoscopy Indications: ?Colon polyp seen on flexible sigmoidoscopy Providers: ?Samir Thomas MD Referring MD: ? Luke Cheema MD Medicines: ?Fentanyl 100 micrograms IV, [...] good. ? Findings: ? The digital rectal exam was normal. A few small-mouthed diverticula were ? found in the sigmoid colon. A sessile polyp was found in the sigmoid ? colon. The polyp was 3 mm in size. This was biopsied with a hot forceps ? for histology. The rectum, descending colon, splenic flexure, transverse ? colon, hepatic flexure, ascending colon, cecum, appendiceal orifice, ? ileocecal valve and ileum appeared normal. The retroflexed view of the ? anal verge was normal and showed no anal or rectal abnormalities. The ? terminal ileum appeared normal. ? Impression: ? - Diverticulosis sigmoid colon. ?- One 3 mm polyp in the sigmoid colon. Tissue was ?removed. This was biopsied. ?- The rectum, descending colon, splenic flexure, ?transverse colon, hepatic flexure, ascending colon, ?cecum, appendiceal orifice, ileocecal valve and ?terminal ileum are normal. ?- The examined portion of the ileum was normal. Recommendation: ? - Discharge patient to home (ambulatory). ?- If polyp is adenomatous repeat colonoscopy in 4 ?years. If polyp is hyperplastic repeat colonoscopy ?in 10 years. ?- Return to primary care physician PRN. ? Alf Thomas M.D Samir Thomas MD Signed Date: 12/05/2011 12:02:19 PM Number of Addenda: 0 I was physically present for the entire viewing portion of the exam. Note Initiated On: 12/05/2011 11:25:41 AM Scope Withdrawal Time: 0 hours 8 minutes 37 seconds Total Procedure Duration: 0 hours 11 minutes 35 seconds RADIOLOGY RESULTS 12/05/2011 11:2 5 AM CDT Luke Cheema MD PROCEDURES RADIOLOGY RESULTS from Last 3 Months or Most Recently Relevant to Health Maintenance Care Teams Construction Checker Relationship Specialty Start Date End Date Shahid Galindo MD [facility] [address] [place], [place] [id number] PCP - General Family Medicine 04/07/21
--- OUTSIDE RECORDS SUMMARY | 2024-04-05 11:42 | XMS_ITS | Clinical Summary ---
Author Organization [facility] Address [address] [place] [id number] Care Team Providers Care Instrumentation Controls Engineer Name Role Phone Shahid Galindo MD Primary Care Provider [phone] Allergies No known active allergies Medications Medication [...] 1944 ANNUAL REVIEW OF HM ORDERS 1944 GLUCOSE 1944 DTAP/TDAP/TD IMMUNIZATION (1 - Tdap) 01/14/1969 LIPID 1984 ZOSTER IMMUNIZATION (1 of 2) 01/14/1994 FALL RISK ASSESSMENT 01/14/2009 MEDICARE ANNUAL WELLNESS VISIT 01/14/2009 Pneumococcal Vaccine: 65+ Years (1 of 1 - PCV) 01/14/2009 RSV VACCINE (1 - 1-dose 75+ series) 01/14/2019 PHQ-2 (once per calendar year) 2023 COVID-19 Vaccine ( - 2023- season) 2024 INFLUENZA VACCINE (#1) 2024 COLONOSCOPY Discontinued 12/05/2011, 11/07/2005 COLORECTAL CANCER SCREENING Discontinued CT COLONOGRAPHY Discontinued FIT Discontinued FLEX SIG Discontinued HPV IMMUNIZATION Aged Out No longer e ligible based on patient's age to complete this topic MENINGITIS IMMUNIZATION Aged Out No l onger eligible based on patient's age to complete this topic RSV MONOCLONAL ANTIBODY Aged Out No l onger eligible based on patient's age to complete this topic sDNA (Cologuard) Discontinued Procedures Procedure Name Priority Date/Time Associated Diagnosis Comments COLONOSCOPY Routine 12/05/2011 11:25 AM CDT from Last 3 Months or Most Recently Relevant to Health Maintenance Results * COLONOSCOPY (12/05/2011 11:25 AM CDT) [facility] COLONOSCOPY [facility] Patient Name: Jaxon Lawler ?Procedure Date: [...] care physician PRN. ? R Martha Navarro Samir Thomas MD Signed Date: 12/05/2011 12:02:19 [...] Recently Relevant to Health Maintenance Care Teams Instrumentation Controls Engineer Relationship Specialty Start Date End Date Shahid Galindo MD [facility] [id number] [place] [address] PCP - General Family Medicine 04/07/21
== END 2024-04-04 08:39 | disposition home or self-care (01) ==
LOC: NFLDREF 04-05 11:35
PROVIDERS: PCP Family Medicine; Referring Provider Family Medicine; Visit Provider Family Medicine
DX: E78.5 Hyperlipidemia, unspecified (principal); I10 Essential (primary) hypertension; Z12.5 Encounter for screening for malignant neoplasm of prostate
CPT/HCPCS: 80053; 80061; G0103

== ENCOUNTER 2025-04-14 07:51 | Outpatient (CLI) | payer MEDICARE, SELFPAY | END 2025-04-14 07:52 | disposition home or self-care (01) | LOC: NFLDREF 04-16 09:10 | PROVIDERS: PCP Family Medicine; Referring Provider Family Medicine; Visit Provider Family Medicine | DX: E78.5 Hyperlipidemia, unspecified (principal); I10 Essential (primary) hypertension; Z13.1 Encounter for screening for diabetes mellitus; Z12.5 Encounter for screening for malignant neoplasm of prostate | CPT/HCPCS: 80053; 80061; G0103 ==